=== PATIENT | female | born 1990 | race Two or more races ===

== ENCOUNTER → 2019-01-29 | Outpatient (CLI) | payer OTHER ==
--- NOTE | 2019-01-29 14:09 | REP ---
OBSTETRIC SONOGRAPHY: HISTORY: Supervision of . Lower pelvic pain. SONOGRAPHIC FINDINGS: Scanning demonstrates a viable single intrauterine gestation in variable lie. motion is observed, and heart rate is recorded at 153 beats per minute. A posterior grade 0 placenta is seen without evidence of previa. There is a hypoechoic area within the placenta measuring 3.3 x 4.1 x 2.8 cm most likely a placental altman. A smaller anechoic area is also seen adjacent to this measuring 1.7 cm in greatest diameter. Placental cord insertion is somewhat eccentric inferiorly. Transvaginal scanning is performed and the inferior placental tip is 1.6 cm from the internal cervical os consistent with a low-lying placenta. Amniotic fluid is subjectively normal. Closed cervical length is 4.4 cm measured transvaginally. No anomaly is seen. Facial profile is seen, but nose and lips are less than optimally seen. Similarly, left and right ventricular cardiac outflow tract views, kidneys, and spine are less than optimally seen due to early gestational age. The following additional anatomic structures are identified and felt to be unremarkable: cranium, choroid plexus, cavum, cerebellum and posterior fossa, lungs, four-chamber heart, diaphragm, left-sided stomach, abdominal wall cord insertion, three-vessel umbilical cord, urinary bladder, upper and lower extremities. BIOMETRY CHART: BPD 3.1 cm = 15 weeks 6 days Head circumference 11.5 cm = 15 weeks 4 days Abdominal circumference 9.7 cm = 15 weeks 6 days Femur length 1.8 cm = 15 weeks 3 days Humeral length 1.9 cm = 15 weeks 4 days HC/AC ratio normal 1.18 Cephalic index normal 0.76 Estimated weight 129 grams, 0 pounds 4 ounces, 41st percentile for 15 weeks 4 days. IMPRESSION: Viable single intrauterine gestation at 15 weeks 4 days by today's composite criteria. NATALY by today's sonography July 19, 2019. anatomic survey is incomplete due to early gestational age as above. The umbilical cord insertion on the placenta is eccentric inferiorly. There is a low-lying placenta. There are hypoechoic areas in the placenta consistent with placental lakes. Followup scan is suggested. Electronically Signed by Abdias Mariee MD 01/29/2019 03:20 P
== END ==
LOC: M RAD 11:18
PROVIDERS: ATTEND Physician Assistant
DX: Z34.80 Encounter for supervision of other normal pregnancy, unspecified trimester (principal); Z3A.15 15 weeks gestation of pregnancy

== ENCOUNTER → 2019-02-11 | Outpatient (CLI) | payer OTHER ==
[2019-02-11 10:41] LABS: BASO % 0.3 % (0.0-1.0); EOS % 0.3 % (0.0-3.0); HEMOGLOBIN 11.7 g/dl (12.0-15.5); LYMPH # 1.6 10^3/uL (1.5-6.5); MEAN CORPUSCULAR HEMOGLOBIN 32.5 pg (27.0-33.0); MEAN CORPUSCULAR HGB CONC 34.4 g/dl (32.0-36.5); MEAN CORPUSCULAR VOLUME 94.4 fl (80.0-96.0); MONO # 0.4 10^3/uL (0.0-0.8); MONO % 4.2 % (0.0-5.0); NEUTROPHILS # 7.1 10^3/uL (1.8-7.7); NEUTROPHILS % 77.5 % (36.0-66.0); PLATELET COUNT, AUTOMATED 171 10^3/uL (150-450); WHITE BLOOD COUNT 9.1 10^3/uL (4.0-10.0)
[2019-02-11 13:19] LABS: CHLAMYDIA DNA AMPLIFICATION NEGATIVE (NEGATIVE); GC DNA AMPLIFICATION NEGATIVE (NEGATIVE)
[2019-02-12 10:51] LABS: HIV 1&2 SCREEN CENTAUR NEGATIVE (NEGATIVE); RUBELLA IgG QUALITATIVE IMMUNE (IMMUNE)
== END ==
LOC: M LAB 09:55
PROVIDERS: ATTEND Advanced Practice Midwife
DX: O09.622 Supervision of young multigravida, second trimester (principal); Z3A.00 Weeks of gestation of pregnancy not specified

== ENCOUNTER → 2019-02-15 | Outpatient (CLI) | payer OTHER ==
--- NOTE | 2019-03-10 10:10 | REP ---
OBSTETRIC SONOGRAPHY: REPEAT DICTATION. HISTORY: Supervision of for anatomy. Follow up anatomy. Comparison study, January 29, 2019. This study is acquired on February 15, 2019 and is presented to me for interpretation on March 10, 2019. SONOGRAPHIC FINDINGS: Scanning through the gravid uterus demonstrates a viable single intrauterine gestation in variable lie. motion was identified, and heart rate is recorded at 147 beats per minute. A posterior grade 1 placenta is seen without evidence of previa. Amniotic fluid is subjectively normal. Closed cervical length is measured transabdominally at 3.1 cm. No extrauterine abnormalities observed. There has been appropriate interval growth. Exam quality is inhibited some degree by position and early gestational age. A placental venous altman is observed. No abnormality is observed. The following anatomic structures are identified and felt to be sonographically unremarkable: cranium, choroid plexus, cavum, cerebellum and posterior fossa, facial profile, lungs, four-chamber heart with left ventricular outflow tract view, diaphragm, left-sided stomach, abdominal wall cord insertion, three-vessel cord, kidneys and bladder, spine, upper and lower extremities. Right ventricular cardiac outflow tract and nose and lip views are still less than optimally seen. BIOMETRY CHART: BPD 4.0 cm = 18 weeks 1 day Head circumference 14.9 cm = 18 weeks 0 days Abdominal circumference 12.4 cm = 18 weeks 0 days Femur length 2.7 cm = 18 weeks 2 days Humeral length 2.6 cm = 18 weeks 0 days HC/AC ratio normal 1.21 Cephalic index normal 0.74 Estimated weight 224 grams, 0 pounds 7 ounces, 48 percentile for 18 weeks 1 day. IMPRESSION: Viable single intrauterine gestation at 18 weeks 1 day by today's composite sonographic criteria. Expected gestational age estimate based on prior sonography is 18 weeks 0 days. NATALY by prior sonography, July 19, 2019. nose and lips and right ventricular cardiac outflow tract views less than optimally seen. Otherwise, anatomic survey is felt to be complete. Electronically Signed by Abdias Mariee MD 03/10/2019 12:31 P
== END ==
LOC: M RAD 16:47
PROVIDERS: ATTEND Advanced Practice Midwife
DX: O09.622 Supervision of young multigravida, second trimester (principal); Z3A.18 18 weeks gestation of pregnancy

== ENCOUNTER → 2019-03-11 | Outpatient (CLI) | payer OTHER ==
--- NOTE | 2019-03-11 16:42 | REP ---
OB ULTRASOUND: Real-time sonographic evaluation of the gravid uterus performed. There is a single living intrauterine gestation, estimated gestational age 21 weeks 3 days, based on the first ultrasound, EDC 07/19/2019. Today's measurements indicate appropriate growth. BPD 49 mm = 20 weeks 6 days, 31st percentile HC 183 mm = 20 weeks 5 days, 26th percentile AC 157 mm = 20 weeks 6 days, 36th percentile FL 35 mm = 20 weeks 6 days, 34th percentile HC/AC ratio 1.17, within normal range. Estimated weight 380 grams, 25th percentile. Cervix is closed and measures 4.4 cm in length. heart rate 144 beats per minute. SEEN/GROSSLY UNREMARKABLE Lateral ventricles yes Posterior fossa yes Upper lip yes Four-chamber heart yes LVOT no RVOT yes Stomach yes Cord insertion yes Three vessel cord yes Kidneys yes Bladder yes Spine yes position: Vertex. Placenta: Posterior and grade 1 with no previa or abruption. Venous lakes are seen in the placenta. Amniotic fluid: Within normal limits. Electronically Signed by Rupert Glover MD 03/11/2019 04:47 P
== END ==
LOC: M RAD 15:36
PROVIDERS: ATTEND Advanced Practice Midwife
DX: Z36.9 Encounter for antenatal screening, unspecified (principal); Z3A.21 21 weeks gestation of pregnancy

== ENCOUNTER 2019-04-06 12:03 | Outpatient (CLI) | payer OTHER ==
[~2019-04-06] VITALS: Ht 157.5 cm; Wt 67.6 kg
[2019-04-06] MEDS ORDERED: PRENTAB9 PO (12:20)
[2019-04-06 12:40] VITALS: BP 112/55
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
[2019-04-06 13:55] LABS: APPEARANCE, URINE HAZY (CLEAR); BACTERIA, URINE AUTO NEGATIVE (NEGATIVE); BILIRUBIN, URINE AUTO NEGATIVE (NEGATIVE); BLOOD, URINE BLOOD NEGATIVE (NEGATIVE); COLOR, URINE YELLOW (YELLOW); GLUCOSE, URINE (UA) AUTO NEGATIVE (NEGATIVE); KETONE, URINE AUTO NEGATIVE (NEGATIVE); LEUKOCYTE ESTERASE, URINE AUTO NEGATIVE (NEGATIVE); MUCUS, URINE SMALL (NEGATIVE); NITRITE, URINE AUTO NEGATIVE (NEGATIVE); PROTEIN, URINE AUTO NEGATIVE (NEGATIVE); RBC, URINE AUTO 0 /HPF (0-3); SPECIFIC GRAVITY URINE AUTO 1.023 (1.002-1.035); SQUAMOUS EPITHELIAL CELL UR AU 3 /HPF (0-6); UROBILINOGEN, URINE AUTO 0.2 mg/dL (0.0-2.0); WBC, URINE AUTO 2 /HPF (0-3)
[2019-04-06 14:18] VITALS: BP 112/63
[2019-04-06 15:18] LABS: CHLAMYDIA DNA AMPLIFICATION NEGATIVE (NEGATIVE); GC DNA AMPLIFICATION NEGATIVE (NEGATIVE)
== END 2019-04-06 14:40 | disposition home or self-care (01) ==
LOC: M LDO 12:03
PROVIDERS: ATTEND Specialist
DX: O26.892 Other specified pregnancy related conditions, second trimester (principal); N89.8 Other specified noninflammatory disorders of vagina; R10.30 Lower abdominal pain, unspecified; O99.282 Endocrine, nutritional and metabolic diseases complicating pregnancy, second trimester; E86.0 Dehydration; Z3A.25 25 weeks gestation of pregnancy
CPT/HCPCS: 59025; 76815; 81001; 87081; 87086; 87186; 87661; G0378; G0463

== ENCOUNTER 2019-04-16 15:36 | Outpatient (CLI) | payer OTHER ==
[~2019-04-16] VITALS: Ht 157.5 cm; Wt 69.4 kg
[~2019-04-16 15:36] MED LIST: PRENTAB9 PO
[2019-04-16 15:54] VITALS: BP 99/57
[2019-04-16] MEDS ORDERED: BENA25CA4 PO (17:00)
[2019-04-16] MEDS ORDERED: MAPA500T2 PO (17:00)
[2019-04-16 17:08] LABS: HEMATOCRIT 32.6 % (36.0-47.0); MEAN CORPUSCULAR HEMOGLOBIN 32.4 pg (27.0-33.0); MEAN CORPUSCULAR HGB CONC 33.7 g/dl (32.0-36.5); MEAN CORPUSCULAR VOLUME 95.9 fl (80.0-96.0); PLATELET COUNT, AUTOMATED 156 10^3/uL (150-450); WHITE BLOOD COUNT 7.9 10^3/uL (4.0-10.0)
[2019-04-16 17:09] VITALS: BP 109/56
[2019-04-16 17:54] LABS: ALBUMIN 2.8 GM/DL (3.2-5.2); ALT/SGPT 17 U/L (12-78); BILIRUBIN,DIRECT < 0.1 MG/DL (0.0-0.2); BILIRUBIN,TOTAL 0.2 MG/DL (0.2-1.0); TOTAL PROTEIN 6.5 GM/DL (6.4-8.2)
--- NOTE | 2019-04-16 18:22 | IPNPDOC ---
Text Note Date of Service The patient was seen on 04/16/19. NOTE Outpatient 28yo G [id number] NATALY 07/19/19. Presents to L&D with complaints of rash and decreased FM. States sporadic BHC. Denies bleeding or LOF Mild papular rash across abdomen and chest Cat I tracing LFT, CBC WNL. Bile acids pending VSS Discharged home. Enc to avoid changes to personal care products, benadryl cream, increased hydration Keep next appt VS,Angie, I+O VS, Angie, I+O Laboratory Tests 04/16/19 17:02 Red Blood Count 3.40 L, Mean Corpuscular Volume 95.9, Mean Corpuscular Hemoglobin 32.4, Mean Corpuscular Hemoglobin Concent 33.7, Red Cell Distribution Width 12.9 Vital Signs Date Time Temp Pulse Resp B/P (MAP) Pulse Ox O2 Delivery O2 Flow Rate FiO2 04/16/19 17:09 90 16 109/56 (73) 04/16/19 15:54 98.4 Chiara Cui CNM Apr 16, 2019 18:22
== END 2019-04-16 18:23 | disposition home or self-care (01) ==
LOC: M LDO 15:36
PROVIDERS: ATTEND Advanced Practice Midwife
DX: O36.8190 Decreased fetal movements, unspecified trimester, not applicable or unspecified (principal); O99.89 Other specified diseases and conditions complicating pregnancy, childbirth and the puerperium; R21 Rash and other nonspecific skin eruption; Z3A.00 Weeks of gestation of pregnancy not specified
CPT/HCPCS: 36415; 59025; 80076; 82239; 85027; G0378; G0463

== ENCOUNTER → 2019-06-18 | Outpatient (REF) | payer OTHER ==
[~2019-06-18] MED LIST changes: +BENA25CA4 PO; +MAPA500T2 PO
== END ==
LOC: M LAB REF 13:03
PROVIDERS: ATTEND Advanced Practice Midwife
DX: O09.213 Supervision of pregnancy with history of pre-term labor, third trimester (principal)

== ENCOUNTER 2019-07-05 11:27 | Outpatient (CLI) | payer OTHER ==
[~2019-07-05] VITALS: Ht 157.5 cm; Wt 70.2 kg
[2019-07-05 11:43] VITALS: BP 117/69
--- NOTE | 2019-07-05 12:27 | IPNPDOC ---
Text Note Date of Service The patient was seen on 07/05/19. NOTE Subjective: Patient is a 28-year-old female who is a at 38 weeks gestation who presents to L&D with complaints of decreased movement and increased mucous discharge. Reports back pain and lower pelvic cramping. States that since she has been in L&D she has felt her baby move twice. Her has been complicated by a history of 2 deliveries followed by 2 full t erm deliveries. She reports cramping not contractions. She denies vaginal bleeding. Objective: VS: see below. FHR 135, moderate variability, positive accelerations, no decelerations. Contractions: none. SSE: cervix is multiparous with thin, stringy, white discharge noted. No pooling of fluid noted. Nitrazine essentially negative. Fern negative. SVE: 2/75/-2 with bag of fluid felt with examination. No cervical change noted after 2 hours. Reports feeling multiple movements since being here. Alert and oriented x2. Respiratory rate is regular without use of accessory muscles. Abdomen: gravid and non-tender to touch. Soft with pa lpation. Lower extremities: no edema and no clonus. Assessment: IUP at 38 weeks gestation, decreased movement, Category I FHR tracing. Plan: Patient discharged to home. She is to follow-up with her routine care. She has an appointment this week. Reviewed access to care, kick count, labor signs, and danger signs to report. VS,Fishbone, I+O VS, Fishbone, I+O Vital Signs Date Time Temp Pulse Resp B/P (MAP) Pulse Ox O2 Delivery O2 Flow Rate FiO2 07/05/19 11:43 97.2 101 18 117/69 (85) KRISTIAN LINK CNM Jul 05, 2019 12:27
[2019-07-05 13:06] VITALS: BP 95/51
== END 2019-07-05 14:28 | disposition home or self-care (01) ==
LOC: M LDO 11:27
PROVIDERS: ATTEND Advanced Practice Midwife
DX: O36.8130 Decreased fetal movements, third trimester, not applicable or unspecified (principal); O26.893 Other specified pregnancy related conditions, third trimester; R10.9 Unspecified abdominal pain; Z3A.38 38 weeks gestation of pregnancy
CPT/HCPCS: 59025; G0378; G0463

== ENCOUNTER 2019-07-08 09:45 | Outpatient (CLI) | payer OTHER ==
[~2019-07-08] VITALS: Ht 157.5 cm; Wt 69.9 kg
[2019-07-08 10:00] VITALS: BP 110/65
[2019-07-08] MEDS ORDERED: ACETAMINOPHEN 500 MG TAB PO ONE (11:30)
[2019-07-08] MEDS ORDERED: CYCLOBENZAPRINE 10 MG TAB PO ONE (12:00)
== END 2019-07-08 12:25 | disposition home or self-care (01) ==
LOC: M LDO 09:45
PROVIDERS: ATTEND Specialist
DX: O36.8130 Decreased fetal movements, third trimester, not applicable or unspecified (principal); O26.893 Other specified pregnancy related conditions, third trimester; R10.30 Lower abdominal pain, unspecified; M54.5 Low back pain; Z3A.38 38 weeks gestation of pregnancy
CPT/HCPCS: 59025; G0378; G0463

== ENCOUNTER 2019-07-14 06:28 | Inpatient (IN) | payer OTHER ==
[2019-07-14] VITALS (41 sets, daily range): BP systolic 106–150; BP diastolic 48–94
[~2019-07-14] VITALS: Ht 157.5 cm; Wt 72.3 kg
[2019-07-14 08:27] LABS: HEMOGLOBIN 10.2 g/dl (12.0-15.5); MEAN CORPUSCULAR HEMOGLOBIN 30.8 pg (27.0-33.0); MEAN CORPUSCULAR VOLUME 90.6 fl (80.0-96.0); PLATELET COUNT, AUTOMATED 139 10^3/uL (150-450); RED BLOOD COUNT 3.31 10^6/uL (4.00-5.40); WHITE BLOOD COUNT 5.8 10^3/uL (4.0-10.0)
[2019-07-14] MEDS ORDERED: miSOPROStol 50 MCG 1/2 TAB (S0191) PO ONE (09:00)
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
[2019-07-14] MEDS ORDERED: LACTATED RINGER'S 1000 ML IV ONE (11:30)
[2019-07-14] MEDS ORDERED: OXYTOCIN DRIP 30 UNITS in IV 1 EA IV SCH ×2 (11:30→21:53)
[2019-07-14] MEDS: LR 1,000 ML IV SCH ×2 (11:32→20:01)
[2019-07-14] MEDS ORDERED: ePHEDrine SULFATE 25 MG/5 ML(5MG/ML) SYRINGE IV PRN (14:00)
[2019-07-14] MEDS ORDERED: EPIDURAL COMMENT XX SCH (14:00)
[2019-07-14] MEDS ORDERED: REFRIGERATOR IV KEYS XX PRN (14:00)
[2019-07-14] MEDS ORDERED: EPIDURAL/PCA KEYS XX PRN (14:00)
[2019-07-14] MEDS ORDERED: diphenhydrAMINE INJ 50MG/ML VIAL (J1200) IV PRN (14:00)
[2019-07-14] MEDS ORDERED: ONDANSETRON 4MG/2ML VIAL (J2405) IV PRN (14:00)
[2019-07-14] MEDS ORDERED: FENTANYL/ROPIVACAINE/NACL BAG 100 ML EPIDURAL SCH (14:00)
[2019-07-14] MEDS ORDERED: NALOXONE INJ 0.4 MG/1 ML VIAL (J2310) IV PRN (14:00)
[2019-07-14] MEDS ORDERED: LACTATED RINGER'S 1000 ML IV PRN (14:00)
[2019-07-14] MEDS ORDERED: MEASLES,MUMPS,RUBELLA VACCINE INJ (MMR-II) (90707) SC SCH (22:00)
[2019-07-14] MEDS ORDERED: ACETAMINOPHEN 500 MG TAB PO PRN (22:00)
[2019-07-14] MEDS ORDERED: DIBUCAINE 1% OINTMENT 30GM TOP PRN (22:00)
[2019-07-14] MEDS ORDERED: METHYLERGONOVINE MALEATE 0.2 MG/ML VIAL (J2210) IM ONE (22:00)
[2019-07-14] MEDS ORDERED: METHYLERGONOVINE MALEATE 0.2 MG TAB PO PRN (22:00)
[2019-07-14] MEDS ORDERED: ACETAMINOPHEN TAB 650MG DOSE (2X325MG) PO PRN (22:00)
[2019-07-14] MEDS ORDERED: DOCUSATE SODIUM 100 MG CAP PO PRN (22:00)
[2019-07-14] MEDS ORDERED: RHOGAM 300 MCG (1500 IU) INJ (J2790) IM SCH (22:00)
[2019-07-14] MEDS ORDERED: SLF 3 ML SYR IV PRN (22:45)
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
[2019-07-15 06:06] VITALS: BP 108/62
[2019-07-15] MEDS: SLF 3 ML SYR IV SCH ×2 (06:20→14:00)
[2019-07-15] MEDS: PERCOCET 5MG/325MG TAB PO PRN ×4 (06:27→23:58)
[2019-07-15] MEDS: PRENATAL VITAMINS CHEWABLE TABLET PO SCH (08:43)
[2019-07-15 18:11] VITALS: BP 105/59
[2019-07-16 05:49] VITALS: BP 102/52
[2019-07-16] MEDS: PERCOCET 5MG/325MG TAB PO PRN (06:02)
[2019-07-16] MEDS ORDERED: ACET1TAB55 PO (07:28)
[2019-07-16] MEDS: PRENATAL VITAMINS CHEWABLE TABLET PO SCH (09:00)
[2019-07-16] MEDS ORDERED: OXYC1TAB23 PO (09:22)
== END 2019-07-16 11:08 | disposition home or self-care (01) | DRG 807 ==
LOC: M LDI 06:28 → M OBS 23:31
PROVIDERS: ADMIT Obstetrics & Gynecology; ATTEND Advanced Practice Midwife
PROC: 10E0XZZ Delivery of Products of Conception, External Approach (ICD-10-PCS; principal; 2019-07-14)
PROC: 10907ZC Drainage of Amniotic Fluid, Therapeutic from Products of Conception, Via Natural or Artificial Opening (ICD-10-PCS; 2019-07-14)
PROC: 3E0P7GC Introduction of Other Therapeutic Substance into Female Reproductive, Via Natural or Artificial Opening (ICD-10-PCS; 2019-07-14)
DX: O99.334 Smoking (tobacco) complicating childbirth (principal); Z37.0 Single live birth; Z3A.39 39 weeks gestation of pregnancy; O69.1XX0 Labor and delivery complicated by cord around neck, with compression, not applicable or unspecified

== ENCOUNTER 2019-09-01 12:47 | Outpatient (RCR) | payer OTHER ==
[~2019-09-01 12:47] MED LIST changes: +ACET1TAB55 PO; +OXYC1TAB23 PO
== END 2019-09-11 ==
LOC: M PT 12:47
PROVIDERS: ATTEND Advanced Practice Midwife
DX: Z51.89 Encounter for other specified aftercare (principal); M54.5 Low back pain

== ENCOUNTER 2020-02-07 18:19 | Emergency (ER) | payer OTHER ==
[~2020-02-07] VITALS: Ht 157.5 cm; Wt 65.2 kg
[2020-02-07 18:20] VITALS: BP 109/71
[2020-02-07] MEDS ORDERED: CYCL-707 (18:37)
[2020-02-07] MEDS ORDERED: LIDO1PAD (18:37)
[2020-02-07] MEDS ORDERED: ONDANSETRON 4MG/2ML VIAL IV ONE (19:15)
[2020-02-07] MEDS ORDERED: METHOCARBAMOL 1,000 MG/10 ML VIAL (J2800) IV ONE (19:15)
[2020-02-07] MEDS ORDERED: NS 1,000 ML IV ONE (19:15)
[2020-02-07 20:03] LABS: BASO % 0.3 % (0.0-1.0); EOS # 0.1 10^3/uL (0.0-0.5); EOS % 1.6 % (0.0-3.0); HEMATOCRIT 41.7 % (36.0-47.0); LYMPH # 2.4 10^3/uL (1.5-5.0); LYMPH % 34.7 % (24.0-44.0); MEAN CORPUSCULAR HEMOGLOBIN 30.4 pg (27.0-33.0); MEAN CORPUSCULAR HGB CONC 33.6 g/dl (32.0-36.5); MEAN CORPUSCULAR VOLUME 90.7 fl (80.0-96.0); MONO # 0.3 10^3/uL (0.0-0.8); MONO % 4.6 % (0.0-5.0); NEUTROPHILS % 58.7 % (36.0-66.0); PLATELET COUNT, AUTOMATED 244 10^3/uL (150-450); WHITE BLOOD COUNT 6.8 10^3/uL (4.0-10.0)
--- NOTE | 2020-02-07 20:28 | REPVR ---
PROCEDURE INFORMATION: Exam: CT Head Without Contrast Exam date and time: 02/07/2020 8:12 PM Age: 29 years old Clinical indication: Injury or trauma; Fall; Initial encounter; Blunt trauma (contusions or hematomas); Additional info: Fall, PT tender, blurry vision TECHNIQUE: Imaging protocol: Computed tomography of the head without contrast. Radiation optimization: All CT scans at this facility use at least one of these dose optimization techniques: automated exposure control; mA and/or kV adjustment per patient size (includes targeted exams where dose is matched to clinical indication); or iterative reconstruction. COMPARISON: No relevant prior studies available. FINDINGS: Brain: Normal. No hemorrhage. Unremarkable white matter. No mass effect. Ventricles: Normal. No ventriculomegaly. Bones/joints: Unremarkable. No acute fracture. Sinuses: 2 cm retention cyst right maxillary sinus. Mastoid air cells: Visualized mastoid air cells are well aerated. Soft tissues: Unremarkable. IMPRESSION: No acute intracranial findings. Electronically signed by: Gerald Qureshi On 02/07/2020 20:28:12 PM
--- NOTE | 2020-02-07 20:31 | REPVR ---
PROCEDURE INFORMATION: Exam: CT Cervical Spine Without Contrast Exam date and time: 02/07/2020 8:12 PM Age: 29 years old Clinical indication: Injury or trauma; Fall; Initial encounter; Blunt trauma; Additional info: Fall, PT tender, blurry vision, L arm numbness TECHNIQUE: Imaging protocol: Computed tomography images of the cervical spine without contrast. Radiation optimization: All CT scans at this facility use at least one of these dose optimization techniques: automated exposure control; mA and/or kV adjustment per patient size (includes targeted exams where dose is matched to clinical indication); or iterative reconstruction. COMPARISON: No relevant prior studies available. FINDINGS: Vertebrae: Straightened lordotic curvature of the cervical spine may be positional or posttraumatic. C2-C3: No disc herniation. No spinal canal stenosis. No neural foraminal narrowing. C3-C4: No disc herniation. No spinal canal stenosis. No neural foraminal narrowing. C4-C5: No disc herniation. No spinal canal stenosis. No neural foraminal narrowing. C5-C6: No disc herniation. No spinal canal stenosis. No neural foraminal narrowing. C6-C7: No disc herniation. No spinal canal stenosis. No neural foraminal narrowing. C7-T1: No disc herniation. No spinal canal stenosis. No neural foraminal narrowing. Soft tissues: Unremarkable. Lungs: Lung apices are normal. IMPRESSION: Straightened lordotic curvature as described above. Finding likely positional. Clinical correlation to exclude muscular spasm as etiologic suggested. Electronically signed by: Gerald Qureshi On 02/07/2020 20:30:37 PM
--- NOTE | 2020-02-07 20:36 | REPVR ---
PROCEDURE INFORMATION: Exam: CT Chest Without Contrast Exam date and time: 02/07/2020 8:12 PM Age: 29 years old Clinical indication: Injury or trauma; Fall; Initial encounter; Blunt trauma (contusions or hematomas); Additional info: Fall, dyspnea, posterior rib tenderness TECHNIQUE: Imaging protocol: Computed tomography of the chest without contrast. 3D rendering: MIP and/or 3D reconstructed images were created by the technologist. Radiation optimization: All CT scans at this facility use at least one of these dose optimization techniques: automated exposure control; mA and/or kV adjustment per patient size (includes targeted exams where dose is matched to clinical indication); or iterative reconstruction. COMPARISON: No relevant prior studies available. FINDINGS: Lungs: Unremarkable. No consolidation. No masses. Pleural space: Unremarkable. No pneumothorax. No pleural effusion. Heart: Unremarkable. No cardiomegaly. No pericardial effusion. Aorta: Unremarkable. No aortic aneurysm. Lymph nodes: Unremarkable. No enlarged lymph nodes. Bones/joints: Unremarkable. No acute fracture. Soft tissues: Unremarkable. IMPRESSION: No acute findings. Electronically signed by: Gerald Qureshi On 02/07/2020 20:36:14 PM
--- NOTE | 2020-02-07 20:39 | REPVR ---
PROCEDURE INFORMATION: Exam: CT Lumbar Spine Without Contrast Exam date and time: 02/07/2020 8:12 PM Age: 29 years old Clinical indication: Injury or trauma; Fall; Initial encounter; Blunt trauma (contusions or hematomas); Additional info: Fall, PT tender, blurry vision, R leg numbness TECHNIQUE: Imaging protocol: Computed tomography images of the lumbar spine without contrast. Radiation optimization: All CT scans at this facility use at least one of these dose optimization techniques: automated exposure control; mA and/or kV adjustment per patient size (includes targeted exams where dose is matched to clinical indication); or iterative reconstruction. COMPARISON: No relevant prior studies available. FINDINGS: Vertebrae: No acute fracture. Normal alignment. L1-L2: No disc herniation. No spinal canal stenosis. No neural foraminal narrowing. L2-L3: No disc herniation. No spinal canal stenosis. No neural foraminal narrowing. L3-L4: No disc herniation. No spinal canal stenosis. No neural foraminal narrowing. L4-L5: There is a mild central spinal stenosis at L4-L5 secondary to diffuse annular bulging, thickened ligamentum flavum without facet joint arthropathy. L5-S1: No disc herniation. No spinal canal stenosis. No neural foraminal narrowing. Sacrum/coccyx: Lumbarized 1st sacral segment. Soft tissues: There is a mild central spinal stenosis at L4-L5 secondary to diffuse annular bulging, thickened ligamentum flavum without facet joint arthropathy. IMPRESSION: 1. Mild central spinal stenosis L4-L5. 2. No acute findings. Electronically signed by: Gerald Qureshi On 02/07/2020 20:39:04 PM
[2020-02-07] MEDS ORDERED: ROBA750T4 PO (20:53)
== END 2020-02-07 21:06 | disposition home or self-care (01) ==
LOC: M ED 18:19
DX: S06.0X0A Concussion without loss of consciousness, initial encounter (principal); M54.5 Low back pain; G89.29 Other chronic pain; M51.26 Other intervertebral disc displacement, lumbar region; W10.8XXA Fall (on) (from) other stairs and steps, initial encounter; Y92.89 Other specified places as the place of occurrence of the external cause; G43.909 Migraine, unspecified, not intractable, without status migrainosus; F17.200 Nicotine dependence, unspecified, uncomplicated; Z88.8 Allergy status to other drugs, medicaments and biological substances; Z91.018 Allergy to other foods; Z79.899 Other long term (current) drug therapy
CPT/HCPCS: 70450; 71250; 72125; 72131; 80047; 84702; 85025; 96374; 99283; J2800

== ENCOUNTER 2020-04-13 12:16 | Emergency (ER) | payer OTHER ==
[~2020-04-13] VITALS: Ht 157.5 cm; Wt 61.6 kg
[~2020-04-13 12:16] MED LIST changes: +CYCL-707; +LIDO1PAD; +ROBA750T4 PO
[2020-04-13] MEDS ORDERED: CLON0.5T2 (12:24)
[2020-04-13] MEDS ORDERED: TUMS500C PO (12:24)
[2020-04-13] MEDS ORDERED: ZOLP5TAB (12:24)
[2020-04-13] MEDS ORDERED: ONDANSETRON 4 MG ORAL DISINTEGRATING TAB PO ONE (13:15)
[2020-04-13 13:27] LABS: BASO % 0.3 % (0.0-1.0); EOS % 0.3 % (0.0-3.0); HEMATOCRIT 36.2 % (36.0-47.0); HEMOGLOBIN 12.5 g/dl (12.0-15.5); LYMPH # 1.9 10^3/uL (1.5-5.0); LYMPH % 27.5 % (24.0-44.0); MEAN CORPUSCULAR HEMOGLOBIN 30.9 pg (27.0-33.0); MEAN CORPUSCULAR HGB CONC 34.5 g/dl (32.0-36.5); MEAN CORPUSCULAR VOLUME 89.4 fl (80.0-96.0); MONO # 0.3 10^3/uL (0.0-0.8); MONO % 4.9 % (0.0-5.0); NEUTROPHILS # 4.5 10^3/uL (1.5-8.5); NEUTROPHILS % 66.9 % (36.0-66.0); PLATELET COUNT, AUTOMATED 237 10^3/uL (150-450); RED BLOOD COUNT 4.05 10^6/uL (4.00-5.40); WHITE BLOOD COUNT 6.8 10^3/uL (4.0-10.0)
--- NOTE | 2020-04-13 13:56 | REP ---
Clinical: Chest and lower extremity pain . Technique: Glover scale and color Doppler evaluation of the bilateral lower extremities using linear high frequency transducer. Findings: Ultrasound examination of the right and left lower extremity deep venous structures from the common femoral vein to the popliteal vein demonstrates normal compressibility flow and wave patterns in response to respiration and augmentation. There is no evidence for deep venous thrombosis. Impression: No evidence for deep venous thrombosis of the bilateral lower extremities . Electronically Signed by Vipul Singh MD 04/13/2020 01:48 P
[2020-04-13 14:14] LABS: CK-MB VALUE MASS < 1.0 NG/ML (<3.6); CPK CREATINE PHOSPHOKINASE 65 U/L (26-192); HCG, SERUM QUANTITATIVE 106138 MIU/ML; MB/CK RELATIVE INDEX 1.54 (< OR =4); TROPONIN I 0.02 NG/ML (< 0.10)
--- NOTE | 2020-04-13 14:46 | REP ---
Clinical: Acute chest pain . Comparison: None . Findings: The mediastinum and cardiac silhouette are stable and within normal limits for portable technique. The lung rowan are clear without acute consolidation, effusion, or pneumothorax. Skeletal structures are intact. Impression: No acute cardiopulmonary process appreciated. Electronically Signed by Vipul Singh MD 04/13/2020 02:38 P
[2020-04-13] MEDS ORDERED: ONDA4TAB6 PO (15:29)
[2020-04-13 15:33] VITALS: BP 112/67
--- NOTE | 2020-04-14 00:40 | ECGEPIP ---
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
== END 2020-04-13 15:40 | disposition home or self-care (01) ==
LOC: M ED 12:16
DX: O21.0 Mild hyperemesis gravidarum (principal); O99.341 Other mental disorders complicating pregnancy, first trimester; F41.9 Anxiety disorder, unspecified; O26.891 Other specified pregnancy related conditions, first trimester; M94.0 Chondrocostal junction syndrome [Tietze]; Z88.8 Allergy status to other drugs, medicaments and biological substances; Z91.018 Allergy to other foods; Z3A.00 Weeks of gestation of pregnancy not specified
CPT/HCPCS: 36415; 71045; 80047; 81001; 82550; 82553; 84484; 84702; 85025; 93005; 93970; 99284; Q0162

== ENCOUNTER 2020-06-09 17:17 | Emergency (ER) | payer OTHER ==
[~2020-06-09] VITALS: Ht 157.5 cm; Wt 64.4 kg
[2020-06-09 17:17] VITALS: BP 120/70
[~2020-06-09 17:17] MED LIST changes: +CLON0.5T2; +ONDA4TAB6 PO; +TUMS500C PO; +ZOLP5TAB
--- NOTE | 2020-06-09 19:59 | REPVR ---
PROCEDURE INFORMATION: Exam: US , Limited Exam date and time: 06/09/2020 7:20 PM Age: 29 years old Clinical indication: Lmp or gestational age (in weeks): 16w 2d; ; Patient HX: Patient fell down stairs yesterday and vaginal spotting happened two times today; Additional info: Trauma TECHNIQUE: Imaging protocol: Real-time ultrasound of the maternal uterus with image documentation. Exam focused on the clinical indication. COMPARISON: US OBS FOLL UP OR REPEAT EACH GES 03/11/2019 3:47 PM FINDINGS: Last menstrual period: 02/16/2020 Gestation: There is a single live intrauterine gestation. heart rate: 142 bpm Presentation: Vertex Placenta: Grade 0. The location of the placenta is posterior. The inferior edge of the placenta is located 3 cm away from the cervix. No placental abruption is noted. A placental synechiae is noted. Amniotic fluid: Subjectively, the amniotic fluid volume is within normal limits. MATERNAL: Cervix: The cervix measures 3.6 cm in length. Right adnexa: The right ovary was not visualized due to obscuration by intestinal gas. Left adnexa: The left ovary was not visualized due to obscuration by intestinal gas. IMPRESSION: 1. Single live intrauterine . 2. No evidence for placenta previa or placental abruption. Placental synechiae. Electronically signed by: Oswaldo Kramer On 06/09/2020 19:58:36 PM
== END 2020-06-09 20:31 | disposition home or self-care (01) ==
LOC: M ED 17:17
DX: O20.0 Threatened abortion (principal); O99.89 Other specified diseases and conditions complicating pregnancy, childbirth and the puerperium; M54.5 Low back pain; G89.29 Other chronic pain; Z3A.16 16 weeks gestation of pregnancy; Z88.8 Allergy status to other drugs, medicaments and biological substances; Z91.018 Allergy to other foods

== ENCOUNTER → 2020-06-22 | Outpatient (CLI) | payer OTHER ==
--- NOTE | 2020-07-14 09:12 | REP ---
COMPLETE OBSTETRICAL ULTRASOUND: CLINICAL: Anatomical evaluation. TECHNIQUE: Transabdominal obstetrical ultrasound with color Doppler evaluation. FINDINGS: Ultrasound examination demonstrates a single live intrauterine in breech presentation. motion was identified by technologist. Placenta is noted posteriorly and grade 1 without evidence for placenta previa or abruption. Amniotic fluid volume is normal. Cervix measures 3.1 cm in length and appears closed. Gestational age by LMP is 19 weeks 0 days with estimated date of delivery of 11/16/20. Gestational age by current measurements is 18 weeks 4 days with estimated date of delivery of 11/19/20. heart rate is 149 beats per minute. Estimated weight by current measurements is 254 grams (50th percentile). Anatomical assessment demonstrate normal cranium, ventricles, posterior fossa, orbits, lungs, stomach/diaphragm, kidneys, bladder, spine, extremities and three vessel cord/cord insertion. Limited evaluation of the heart and cardiac ventricular outflow tracts as well as facial features noted. IMPRESSION: Single live intrauterine in breech presentation demonstrating appropriate estimated weight and growth. Anatomical limitations as noted above may warrant re-evaluation and follow up. The remainder of the anatomical assessment is complete and normal. MTDD
== END ==
LOC: M RAD 16:28
PROVIDERS: ATTEND Physician Assistant
DX: Z36.87 Encounter for antenatal screening for uncertain dates (principal); Z3A.18 18 weeks gestation of pregnancy; O32.1XX0 Maternal care for breech presentation, not applicable or unspecified

== ENCOUNTER → 2020-07-25 | Outpatient (REF) | payer OTHER ==
[2020-07-25 15:17] LABS: HEMATOCRIT 34.9 % (36.0-47.0); HEMOGLOBIN 11.4 g/dl (12.0-15.5); MEAN CORPUSCULAR HEMOGLOBIN 30.8 pg (27.0-33.0); MEAN CORPUSCULAR HGB CONC 32.7 g/dl (32.0-36.5); MEAN CORPUSCULAR VOLUME 94.3 fl (80.0-96.0); PLATELET COUNT, AUTOMATED 178 10^3/uL (150-450); WHITE BLOOD COUNT 8.9 10^3/uL (4.0-10.0)
[2020-07-25 16:31] LABS: HEPATITIS C VIRUS ABY INDEX 0.2 INDEX (<0.8); HIV 1&2 SCREEN CENTAUR NEGATIVE (NEGATIVE)
== END ==
LOC: M PLALAB 11:12
PROVIDERS: ATTEND Specialist
DX: Z34.81 Encounter for supervision of other normal pregnancy, first trimester (principal); Z3A.00 Weeks of gestation of pregnancy not specified

== ENCOUNTER → 2020-07-27 | Outpatient (CLI) | payer OTHER ==
--- NOTE | 2020-07-27 11:28 | REP ---
INDICATION: F/U ANATOMY heart and facial features. COMPARISON: June 22, 2020.. TECHNIQUE: Transabdominal scanning. FINDINGS: Scanning through the gravid uterus demonstrates a viable single intrauterine gestation in breech lie. motion is observed and heart rate is recorded at 143 beats per minute. A posterior placenta is seen, grade 1, without evidence of placenta previa. Amniotic fluid is subjectively normal. Closed cervical length is measured at 3.2 cm transabdominally. No extrauterine abnormality is observed. No anomaly is seen. The following anatomic structures are identified and felt to be sonographically unremarkable: cranium, facial profile, nose and lips, four-chamber heart with left and right ventricular outflow tract views, left-sided stomach, kidneys and urinary bladder, spine, three-vessel cord. In conjunction with the prior study, anatomic survey is felt to be complete. Biometry chart: BPD 5.5 cm, 22 weeks 6 days Head circumference 20.9 cm 23 weeks 0 days Abdominal circumference 19.5 cm 24 weeks 1 day Femur length 4.0 cm 23 weeks 0 days humeral length 3.9 cm 24 weeks 0 days HC AC ratio normal 1.07 Cephalic index normal 0.73 Estimated weight 603 g, 1 lb 5 oz, 22nd percentile for 24 weeks 0 days IMPRESSION: Viable single intrauterine gestation at 23 weeks 3 days by today's composite sonographic criteria. NATALY by today's sonography November 20, 2020. No complication identified. Expected gestational age estimate based on prior sonography 24 weeks 0 days, NATALY by prior sonography November 16, 2020. <Electronically signed by Lui Mariee > 07/27/20 [id number]
== END ==
LOC: M WHC 09:56
PROVIDERS: ATTEND Specialist
DX: Z34.82 Encounter for supervision of other normal pregnancy, second trimester (principal)

== ENCOUNTER 2020-09-18 22:26 | Outpatient (CLI) | payer OTHER ==
[~2020-09-18] VITALS: Ht 157.5 cm; Wt 71.8 kg
[2020-09-18 22:53] VITALS: BP 109/53
[2020-09-18 23:24] LABS: APPEARANCE, URINE CLEAR (CLEAR); BACTERIA, URINE AUTO NEGATIVE (NEGATIVE); BILIRUBIN, URINE AUTO NEGATIVE (NEGATIVE); BLOOD, URINE BLOOD NEGATIVE (NEGATIVE); COLOR, URINE YELLOW (YELLOW); GLUCOSE, URINE (UA) AUTO NEGATIVE (NEGATIVE); KETONE, URINE AUTO NEGATIVE (NEGATIVE); LEUKOCYTE ESTERASE, URINE AUTO TRACE (NEGATIVE); NITRITE, URINE AUTO NEGATIVE (NEGATIVE); PROTEIN, URINE AUTO NEGATIVE (NEGATIVE); RBC, URINE AUTO 0 /HPF (0-3); SQUAMOUS EPITHELIAL CELL UR AU 2 /HPF (0-6); UROBILINOGEN, URINE AUTO 0.2 mg/dL (0.0-2.0); WBC, URINE AUTO 1 /HPF (0-3)
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
--- NOTE | 2020-09-19 02:44 | REPVR ---
PROCEDURE INFORMATION: Exam: US ; Follow up Exam date and time: 09/19/2020 1:18 AM Age: 29 years old Clinical indication: Lmp or gestational age (in weeks): 31w5d; Labor and delivery abnormalities; Other: Pressure in cervix/back pain; ; Patient HX: Patient has history of 2 prior babies and 2 full term babies TECHNIQUE: Imaging protocol: Transabdominal ultrasound of the uterus, real time with image documentation. Follow-up (eg, re-evaluation of size by measuring standard growth parameters and amniotic fluid volume, re-evaluation of organ system(s) suspected or confirmed to be abnormal on a previous scan). COMPARISON: US OBS FOLLOW UP OR REPEAT 07/27/2020 10:27 AM FINDINGS: Gestation: Single intrauterine fetus. heart rate: heartbeat of 133 bpm. Presentation: Cephalic presentation. Placenta: Posterior placenta. Amniotic fluid index: Normal C[place] of 13.1 cm. ANATOMICAL SURVEY: anatomy: The stomach, four-chamber heart, cord insertion, bladder, cord, kidneys, nose/lips and spine appear normal. BIOMETRY: Gestational age (AUA): The composite gestational age by ultrasound is 31 weeks 4 days. Estimated due date (AUA): The EDC is 11/17/2020 with adequate interval growth since the prior study. Estimated weight: The estimated weight is 1774 grams and is 51st percentile. Biparietal diameter: The BPD measures 7.7 cm suggesting an age of 31 weeks 0 days. Head circumference: The head circumference measures 28.4 cm suggesting an age of 31 weeks 2 days. Abdominal circumference: The abdominal circumference measures 27.4 cm suggesting an age of 31 weeks 3 days. Femur length: The femur length measures 6.1 cm suggesting an age of 31 weeks 5 days. MATERNAL: Cervix: The cervix measures 2.0 cm transvaginal with funneling of the internal os measuring 4.1 cm in length with diameter minimum of 1.6 cm. IMPRESSION: 1. Single live intrauterine fetus in cephalic presentation with a composite age of 31 weeks 4 days. The EDC is 11/17/2020. 2. Short cervix measuring 2.0 cm with funneling of the internal os measuring 4.1 cm in length with a minimum diameter of 1.6 cm. Electronically signed by: Elio Vásquez On 09/19/2020 02:44:53 AM
== END 2020-09-19 03:08 | disposition home or self-care (01) ==
LOC: M LDO 22:26
PROVIDERS: ATTEND Advanced Practice Midwife
DX: O47.03 False labor before 37 completed weeks of gestation, third trimester (principal); O09.33 Supervision of pregnancy with insufficient antenatal care, third trimester; O99.343 Other mental disorders complicating pregnancy, third trimester; F41.9 Anxiety disorder, unspecified; Z87.891 Personal history of nicotine dependence; Z3A.31 31 weeks gestation of pregnancy
CPT/HCPCS: 59025; 76816; 76817; 76820; 81001; 87252; G0378; G0463

== ENCOUNTER 2020-09-26 12:42 | Outpatient (CLI) | payer OTHER ==
[~2020-09-26] VITALS: Ht 157.5 cm; Wt 69.9 kg
[2020-09-26 13:00] VITALS: BP 97/60
[2020-09-26 14:34] VITALS: BP 101/59
--- NOTE | 2020-09-26 15:34 | IPNPDOC ---
Obstetrical Progress Note Date of Service Sep 26, 2020 Subjective 30yo at 32+5 weeks EGA. Dated by second TM US c/w LMP. Limited care. History of two prior spontaneous PTL / PTB (32 weeks and 34 weeks). She presents complaining of increased vaginal discharge and intermittent pelvic pressure. She denies any large gush of fluid or continuous flow of vaginal fluid. Denies any bright red vaginal bleeding. +FM. No OLIVEIRA, visual changes, RUQ pain, sob, cp. PMH: anxiety, migraines SH: oral surgery Meds: PNV All: Reglan, Latex OB: Term x 3, x 2 (spontaneous PTL/PTB), SAB x 1. 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 Sochx: +smoker, denies illicit drug use/etoh PN course: limited care/late entry Objective Vital Signs Date Time Temp Pulse Resp B/P (MAP) Pulse Ox O2 Delivery O2 Flow Rate FiO2 09/26/20 14:34 89 101/59 (73) 09/26/20 13:00 97.2 18 Assessment Heart Rate Tracing: Category I (Reactive) Tocometer Frequency: irregular (and rare) Sterile Vaginal Examination Dilation: 1cm Effacement (%): 30% Station: -3 Cervical Consistency: Firm Cervical Position: Posterior Postion/Presentation: Cephalic presentation Assessment and Plan Age: 30 : 7 Term: 3 Pre-term: 2 Abortions: 1 Livin Status: Reassuring Additional Comments SSE: cervix visually closed, no pooling, negative ferning/nitrazine SVE: 11/06/-3, no bloody show TVUS,claudio: cephalic presentation. MVP 5-6cm. and Cervical Length is 3.4cm without funneling or dynamic changes. A/P: 30yo at 32+5 weeks EGA. No current evidence of PTL, advanced cervical dilation, cervical shortening, PPROM, IAI/infection. Reassuring maternal and status. Routine third TM precautions reviewed. DO CARINE Smyth JONATHAN R. DO Sep 26, 2020 15:34
== END 2020-09-26 15:30 | disposition home or self-care (01) ==
LOC: M LDO 12:42
PROVIDERS: ATTEND Obstetrics & Gynecology
DX: O26.893 Other specified pregnancy related conditions, third trimester (principal); R10.2 Pelvic and perineal pain; O09.33 Supervision of pregnancy with insufficient antenatal care, third trimester; O99.333 Smoking (tobacco) complicating pregnancy, third trimester; F17.200 Nicotine dependence, unspecified, uncomplicated; Z3A.32 32 weeks gestation of pregnancy; Z91.040 Latex allergy status; Z88.8 Allergy status to other drugs, medicaments and biological substances
CPT/HCPCS: 59025; G0378; G0463

== ENCOUNTER 2020-10-02 05:06 | Inpatient (IN) | payer OTHER ==
[~2020-10-02] VITALS: Ht 157.5 cm; Wt 70.0 kg
[2020-10-02] VITALS (8 sets, daily range): BP systolic 107–168; BP diastolic 50–99
[2020-10-02] MEDS ORDERED: PENICILLIN G POTASSIUM IV 5 MU in D5W MINI-BAG PLUS 100 ML IV ONE (05:15)
[2020-10-02] MEDS ORDERED: ceFAZolin 2 GM/D5W 50 ML IV BAG (J0690 PER 500MG) As Ordered ONE (05:30)
[2020-10-02] MEDS ORDERED: BICITRA 30ML SOLN UDC As Ordered ONE (05:30)
[2020-10-02] MEDS ORDERED: MORPHINE PRES-FREE INJ 10 MG/10 ML VIAL (J2274) As Ordered ONE (05:41)
[2020-10-02] MEDS ORDERED: PHENYLephrine HCL 500 MCG/5 ML (100MCG/ML) SYRINGE (J2370) As Ordered ONE (05:42)
[2020-10-02] MEDS ORDERED: ePHEDrine SULFATE 25 MG/5 ML(5MG/ML) SYRINGE As Ordered ONE (05:42)
[2020-10-02] MEDS ORDERED: OXYTOCIN 30 UNITS IN 0.9% NaCl 500ML IV BAG (J2590) As Ordered ONE ×2 (05:42→07:18)
[2020-10-02] MEDS ORDERED: LR 1,000 ML IV SCH ×2 (05:46→07:45)
[2020-10-02] MEDS ORDERED: LACTATED RINGER'S 1000 ML IV STA (05:46)
[2020-10-02 05:49] LABS: HEMATOCRIT 33.8 % (36.0-47.0); HEMOGLOBIN 11.3 g/dl (12.0-15.5); MEAN CORPUSCULAR HEMOGLOBIN 30.3 pg (27.0-33.0); MEAN CORPUSCULAR HGB CONC 33.4 g/dl (32.0-36.5); MEAN CORPUSCULAR VOLUME 90.6 fl (80.0-96.0); PLATELET COUNT, AUTOMATED 123 10^3/uL (150-450); RED BLOOD COUNT 3.73 10^6/uL (4.00-5.40); WHITE BLOOD COUNT 11.7 10^3/uL (4.0-10.0)
[2020-10-02] MEDS ORDERED: fentaNYL 100 MCG/2 ML INJECTION (J3010) As Ordered ONE ×2 (05:50→07:48)
[2020-10-02] MEDS ORDERED: MIDAZOLAM INJ 2MG/2ML VIAL (J2250 PER 1MG) As Ordered ONE (05:50)
[2020-10-02] MEDS ORDERED: ceFAZolin SOD 2 GM in IV 1 EA IV ONE (06:00)
[2020-10-02] MEDS ORDERED: NALOXONE INJ 0.4MG/1ML VIAL (J2310 PER 1MG) IV PRN ×2 (06:00)
[2020-10-02] MEDS ORDERED: ONDANSETRON 4MG/2ML VIAL IV PRN ×3 (06:00→07:45)
[2020-10-02] MEDS ORDERED: BICITRA 30ML SOLN UDC PO ONE (06:00)
[2020-10-02] MEDS ORDERED: diphenhydrAMINE 50MG/ML VIAL (J1200) IV PRN (06:00)
[2020-10-02] MEDS ORDERED: NALBUPHINE HCL 10 MG/ML AMP (J2300) IV PRN (06:00)
[2020-10-02] MEDS ORDERED: AZITHROMYCIN INJ 500MG VIAL (J0456 PER 500MG) As Ordered ONE (06:13)
[2020-10-02] MEDS ORDERED: AZITHROMYCIN INJ 500 MG, VIAL MATE ADAPTER 1 EACH in D5W 250 ML IV ONE (06:15)
[2020-10-02] MEDS ORDERED: LIDOCAINE 2% 100MG/5ML SDV (FOR ANES.) As Ordered ONE (06:30)
[2020-10-02] MEDS ORDERED: propofoL 200 MG/20 ML VIAL As Ordered ONE (06:30)
[2020-10-02] MEDS ORDERED: ONDANSETRON 4MG/2ML VIAL As Ordered ONE (06:35)
[2020-10-02] MEDS ORDERED: OXYTOCIN DRIP 30 UNITS in IV 1 EA IV SCH (06:52)
[2020-10-02] MEDS ORDERED: MEASLES,MUMPS,RUBELLA VACCINE INJ (MMR-II) (90707) SC SCH (07:00)
[2020-10-02] MEDS ORDERED: PERCOCET 5MG/325MG TAB PO PRN ×3 (07:00→23:30)
[2020-10-02] MEDS ORDERED: RHOGAM 300 MCG (1500 IU) INJ (J2790) IM SCH (07:00)
[2020-10-02] MEDS ORDERED: MOM 30ML SUSPENSION UDC PO PRN (07:00)
[2020-10-02 07:06] LABS: ALT/SGPT 14 U/L (12-78); BILIRUBIN,TOTAL 0.2 MG/DL (0.2-1.0); CREATININE FOR GFR 0.65 MG/DL (0.55-1.30); GLOMERULAR FILTRATION RATE > 60.0 (>60); LDH LACTATE DEHYDROGENASE 178 U/L (84-246); URIC ACID 3.7 MG/DL (2.6-6.0)
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
[2020-10-02] MEDS: fentaNYL 100 MCG/2 ML INJECTION (J3010) IV PRN ×4 (07:50→08:25)
[2020-10-02] MEDS ORDERED: PERCOCET 5MG/325MG TAB As Ordered ONE (08:30)
[2020-10-02] MEDS: PERCOCET 5MG/325MG TAB PO PRN ×4 (08:32→23:31)
--- NOTE | 2020-10-02 09:38 | RO ---
OPERATIVE NOTE DATE OF OPERATION: 10/02/2020 SURGEON: Rosalina Lauren M.D. 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 PREOPERATIVE DIAGNOSIS: 33 week, 4 days active labor with premature, rupture of membranes in the setting of active HSV lesions on the perineum. POSTOPERATIVE DIAGNOSIS: 33 week, 4 days active labor with premature, rupture of membranes in the setting of active HSV lesions on the perineum. MATERIAL FORWARDED TO THE LAB FOR EXAMINATION: Placenta. DESCRIPTION OF FINDINGS: Male in cephalic presentation, Apgars 8 and 8, weight 1996 gm, 4 lb, 6 oz. Normal appearing uterus, fallopian tubes and ovaries. INFECTION CLASSIFICATION: 2. ESTIMATED BLOOD LOSS: 700 mL IV FLUIDS: 800 mL of lactated Ringer's. URINE OUTPUT: 50 mL of clear yellow urine. OPERATION PERFORMED: Primary low transverse section. DESCRIPTION OF OPERATION: After obtaining informed consent, the patient was taken to the operating room. She had reactive NST prior. Spinal anesthesia was administered and she also had a Chamorro catheter placed and bilateral sequential compression devices. She was prepped and draped in normal sterile fashion in the dorsal supine position in the left lateral tilt. A timeout was performed to confirm patient name, date of , procedure and indication. The team was in agreement. She received two grams IV Ancef prophylactically as well as 500 mg IV azithromycin. Spinal anesthesia was found to be adequate using an Allis clamp. A Pfannenstiel skin incision was made with the scalpel and carried through to the underlying layer of the fascia with the Bovie. The fascia was incised in the midline and the incision was extended laterally with Parekh scissors. The superior and inferior aspects of the fascial incision were grasped with Renzo clamps, elevated and the underlying rectus muscles were dissected off bluntly and sharply. The peritoneum was entered digitally and the rectus muscles were in the midline. The peritoneal incision was extended superiorly and inferiorly with good visualization of the bladder. A Mobius retractor was inserted. The vesicouterine peritoneum was identified, grasped with pickups and entered sharply with Metzenbaum scissors. The incision was extended laterally and I attempted to create the bladder flap digitally but was minimally successful given the lower uterine segment was not as thinned down as it would otherwise be if she had been full term. The lower uterine segment was scored in a transverse fashion with a scalpel. The uterus was entered bluntly with the incision being extended with traction. The 's head was elevated to the level of the incision. Fundal pressure was applied. The head was delivered atraumatically in the OA position. The anterior shoulder, posterior shoulder and corpus were delivered without difficulty. The nose and mouth were suctioned with bulb suction and cord was clamped x2 and cut. was handed off to the awaiting cause analyst. Dr. Crowley was present. The placenta was removed with uterine massage and traction on the cord and the uterus was exteriorized and cleared of all clot and debris. The uterine incision was repaired with 0 Vicryl suture in a running locking fashion. A second layer of 0 Monocryl suture was used to close the hysterotomy incision in an imbricating fashion. The uterine incision was inspected. Hemostasis was noted. The gutters were cleared of clots. The peritoneum was closed using 3-0 Vicryl suture in running fashion. The fascia was reapproximated with 0 Vicryl suture in a running fashion. The subcutaneous tissue was copiously irrigated. Magaly's fascia was reapproximated using 3-0 Vicryl suture in a running fashion. Skin edges were reapproximated using a running subcuticular stitch of 4-0 Monocryl suture. The incision was cleaned with a wet lap, dried with a dry lap. Steri-Strips were applied in the usual fashion perpendicular to the Pfannenstiel incision and an Optifoam dressing was applied. Surgical drapes were removed. The vagina was cleared of all blood clot without active bleeding noted. The fundus was firm at U minus 2 cm. All counts were correct x2. The procedure was without complication. The patient tolerated the procedure well. She was taken to the recovery room on labor and delivery in stable condition.
[2020-10-02] MEDS: LR 1,000 ML IV SCH ×3 (11:24→22:52)
[2020-10-02] MEDS: PRENATAL VITAMINS CHEWABLE TABLET PO SCH (12:24)
[2020-10-02] MEDS: valACYclovir HCL 500 MG TAB PO SCH ×2 (12:24→21:00)
[2020-10-02] MEDS: DOCUSATE SODIUM 100MG CAPSULE PO SCH ×2 (12:24→20:33)
[2020-10-03 02:15] VITALS: BP 101/55
[2020-10-03] MEDS: PERCOCET 5MG/325MG TAB PO PRN ×5 (05:14→21:51)
--- NOTE | 2020-10-03 06:58 | IPNPDOC ---
Progress Note Date of Service: Oct 03, 2020 Day#: 1 Progress Note SUBJECT: Darlene is a 30-year-old 7 now Para 4-3-1-6 status post primary section delivery at 33-4/7 weeks' for a herpes outbreak during active labor, doing well day # 1. She has been ambulating around the room, voiding spontaneously without issue and tolerating regular diet. Reports lochia is like a normal period. Pain well controlled with Percocet PRN at this time. She is not passing flatus. OBJECTIVE: VITAL SIGNS: Within normal limits, afebrile. Alert and oriented times three. Respiration regular, no accessory muscle use. Extremities: no edema, no calf tenderness. Abdomen: Fundus firm at U-2. Soft, NTTP. Mild distention noted. Dressing dry and intact, 2 <1cm spots of bleeding noted on dressing. Minimal lochia. ASSESSMENT: Postoperative Day 1 PLAN: 1. Percocet for pain. 2. Encourage ambulation. 3. May shower today. 4. Routine nursing care VS, I&O, [facility] [place] Vital Signs/I&O Vital Signs Date Time Temp Pulse Resp B/P (MAP) Pulse Ox O2 Delivery O2 Flow Rate FiO2 10/03/20 05:50 16 10/03/20 02:15 97.9 93 101/55 (70) 99 10/02/20 18:00 Room Air I&O- Last 24 Hours up to 6 AM 10/03/20 06:00 Intake Total 620 ml Output Total 1875 ml Balance -1255 ml KRISTIAN LINK CNM Oct 03, 2020 06:56
[2020-10-03 07:07] VITALS: BP 108/65
[2020-10-03 08:02] LABS: HEMATOCRIT 30.8 % (36.0-47.0); HEMOGLOBIN 10.1 g/dl (12.0-15.5); MEAN CORPUSCULAR HEMOGLOBIN 30.2 pg (27.0-33.0); MEAN CORPUSCULAR HGB CONC 32.8 g/dl (32.0-36.5); MEAN CORPUSCULAR VOLUME 92.2 fl (80.0-96.0); PLATELET COUNT, AUTOMATED 143 10^3/uL (150-450); RED BLOOD COUNT 3.34 10^6/uL (4.00-5.40)
[2020-10-03] MEDS ORDERED: PERCOCET PO (08:45)
[2020-10-03] MEDS ORDERED: DOK1CAP7 PO (08:45)
[2020-10-03] MEDS: valACYclovir HCL 500 MG TAB PO SCH ×2 (09:00→20:14)
[2020-10-03] MEDS: PRENATAL VITAMINS CHEWABLE TABLET PO SCH (09:28)
[2020-10-03] MEDS: DOCUSATE SODIUM 100MG CAPSULE PO SCH ×2 (09:28→20:14)
[2020-10-03 10:01] VITALS: BP 126/67
[2020-10-03] MEDS ORDERED: BENZOCAINE 20% HEMORRHOIDAL OINTMENT 28GM TUBE TOP PRN (10:45)
[2020-10-03 14:11] VITALS: BP 126/82
[2020-10-03] MEDS ORDERED: MOM 30ML SUSPENSION UDC PO PRN (14:30)
[2020-10-03] MEDS: SIMETHICONE 80 MG CHEW TAB PO SCH ×2 (14:46→20:14)
[2020-10-03 18:03] VITALS: BP 123/72
[2020-10-03 23:21] VITALS: BP 116/69
[2020-10-04] MEDS: SIMETHICONE 80 MG CHEW TAB PO SCH ×2 (01:08→06:07)
[2020-10-04] MEDS: PERCOCET 5MG/325MG TAB PO PRN ×3 (01:58→10:22)
[2020-10-04 02:23] VITALS: BP 118/69
[2020-10-04 06:25] VITALS: BP 112/66
[2020-10-04] MEDS: PRENATAL VITAMINS CHEWABLE TABLET PO SCH (09:14)
[2020-10-04] MEDS: valACYclovir HCL 500 MG TAB PO SCH (09:14)
[2020-10-04] MEDS: DOCUSATE SODIUM 100MG CAPSULE PO SCH (09:14)
--- NOTE | 2020-10-04 11:59 | DSES ---
DISCHARGE SUMMARY DATE OF ADMISSION: 10/02/2020 DATE OF DISCHARGE: 10/04/2020 HISTORY: Darlene is a 30-year-old 7 now para 2, 3, 2, 5 who presented to labor and delivery on 10/02/2020 spontaneously ruptured at 33 weeks and 4 days in active labor as well as a recently diagnosed active HSV outbreak with lesion present at the time of presentation. The decision was made for a primary low transverse section. She delivered a live male infant weighing 1996 grams (4 pounds 6 ounces), Apgars 8 and 8. Her estimated blood loss was 700 mL. Her post-operative course has been complicated by a complaint of unmanaged pain which has now resolved and is managed with oral pain medications. Her was admitted to the Intensive Care Unit and has since been transferred to [facility] due to HSV exposure. She does request discharge today. OBJECTIVE: Her vital signs are stable; temperature 98.5, pulse 109, respirations 18, blood pressure 112/66. Her breasts are soft and nontender. Her abdomen with fundus firm at 1 fingerbreadth below umbilicus. Her incision with the dressing in place there is no new drainage noted. Perineum is intact with Lochia rubra scant. LABORATORY DATA: Laboratories on 10/02/2020: CBC with hemoglobin 11.3, hematocrit 33.8, platelets 123. Post-operative CBC on 10/03/2020: Hemoglobin of 10.1, hematocrit 30.8 and platelets of 143. PLAN: Discharge the patient to home today so she may be able to visit her at [facility]. Prescription for pain medication has been E-prescribed by Dr. Rosalina Lauren to her pharmacy. She is to be seen at [facility] for a 2 week incision check and an 8 week visit. I reviewed Discharge Instructions for the patient which include breast care, incision care, kenya care, pelvic rest, activity and lifting restrictions, danger signs to report and the ability to access care once she is home. The patient has had all of her questions answered and is requesting discharge home today.
[2020-10-05 14:08] LABS: HSV TYPE I IgM AB <1:10 titer (<1:10); HSV TYPE II IgM ABY <1:10 titer (<1:10)
== END 2020-10-04 11:03 | disposition home or self-care (01) | DRG 772 ==
LOC: M LDO 05:06 → M LDI 05:13 → M OBS 09:00
PROVIDERS: ADMIT Obstetrics & Gynecology; ATTEND Obstetrics & Gynecology
PROC: 10D00Z1 Extraction of Products of Conception, Low, Open Approach (ICD-10-PCS; principal; 2020-10-02 06:20)
DX: O42.013 Preterm premature rupture of membranes, onset of labor within 24 hours of rupture, third trimester (principal); O98.32 Other infections with a predominantly sexual mode of transmission complicating childbirth; Z3A.33 33 weeks gestation of pregnancy; A60.09 Herpesviral infection of other urogenital tract; Z37.0 Single live birth

== ENCOUNTER → 2020-12-26 | Outpatient (CLI) | payer OTHER ==
[~2020-12-26] MED LIST changes: +DOK1CAP7 PO; +PERCOCET PO
--- NOTE | 2020-12-26 13:16 | REP ---
INDICATION: R22.9IL BREAST SELLING,MASS AND LUMP; R22.9 KENNEDY BREAST SWELLING,MASS,LUMP. COMPARISON: Comparison bilateral mammography November 19, 2019. TECHNIQUE: Bilateral CC and MLO) view(s) were taken. Craniocaudal and mediolateral oblique views of each breast were obtained with multiple skin markers each of which is affixed to the skin by the patient at site of the palpable lump. There are 4 on the left and 4 on the right. 3D tomography is carried out and targeted bilateral breast sonography is performed. FINDINGS: Breast parenchyma remains heterogeneously dense in a pattern which may inhibit the sensitivity of mammography. There is a stable normal lymph node in the right axilla. No dominant mass density is seen. No architectural distortion or spiculation is observed. No microcalcification or worrisome skin changes seen mammographically. There is no change in the appearance of mammogram from the November 22, 2019 prior study. The Volpara volumetric breast density pattern is C. Bilateral whole breast sonography: Heterogeneous fibroglandular background echotexture is seen bilaterally. No cyst, mass, acoustic shadowing or architectural distortion is seen sonographically in either breast.. IMPRESSION: BIRADS/ACR category 1 negative mammographic and sonographic findings bilaterally.. This patient's Tyrer-Cuzick lifetime breast cancer risk assessment score is 21.2%. Enhanced screening in the form of annual bilateral breast MRI scanning is warranted. This mammogram was interpreted with the aid of an FDA-approved computer-aided detection system. The patient states she had a clinical breast exam in over a year ago. The patient letter being requested is M2 dense. RECOMMENDATION: Repeat screening mammography recommended 1 year (for women over 40). Bilateral breast MRI scanning is recommended annually, beginning 6 months from now. <Electronically signed by Lui Mariee > 12/26/20 0615
== END ==
LOC: M WHC 09:28
PROVIDERS: ATTEND Physician Assistant
DX: R22.9 Localized swelling, mass and lump, unspecified (principal); Z97.8 Presence of other specified devices
CPT/HCPCS: 76642; 77066; G0279

== ENCOUNTER → 2021-02-08 | Outpatient (CLI) | payer OTHER ==
--- NOTE | 2021-02-09 23:24 | ECWPNPC ---
PATIENT NAME: JENA AQUINO : 1990 GENDER: FEMALE VISIT DATE: 02/08/2021 DISCHARGE DATE: 02/08/21 1113 VISIT LOCKED DATE TIME: PHYSICIAN: BROCK SIGALA RESOURCE: BROCK SIGALA REASON FOR APPOINTMENT 1. CHRONIC BACK PAIN HISTORY OF PRESENT ILLNESS DEPRESSION SCREENING: PHQ-2 (2015 EDITION) LITTLE INTEREST OR PLEASURE IN DOING THINGS?SEVERAL DAYS FEELING DOWN, DEPRESSED, OR HOPELESS?DECLINED TO SPECIFY TOTAL SCORE1 30-YEAR-OLD FEMALE IN FOR INITIAL PAIN CONSULT REGARDING LOW BACK PAIN. PATIENT STATES THE PAIN HAS BEEN PRESENT FOR SEVERAL YEARS STATUS POST A HISTORY OF ABUSE. SHE ADMITS TO BEING ON PERCOCET IN THE PAST WITH GOOD RELIEF OF HER PAIN EVIDENCED BY INCREASED FUNCTIONALITY AND DECREASED PAIN. PAIN CENTER INTAKE QUESTIONS: DO YOU HAVE A HISTORY OF MRSA? :NO DO YOU TAKE A BLOOD THINNERS? :NO DO YOU HAVE ANY BLEEDING DISORDERS? :NO ANY NEW NUMBNESS OR WEAKNESS IN YOUR LEGS OR ARMS? :YES WEAKNESS IN RIGHT ARM AND LEGS ANY PACEMAKER,DEFIBRILLATOR, OR DORSAL COLUMN STIMULATOR? :NO DO YOU HAVE ANY RASHES OR OPEN SORES? :NO ARE YOU ALLERGIC TO IV DYE? :NO ARE YOU DIABETIC? :NO ANY NEW PROBLEMS WITH YOUR MEDICATIONS? :NO HAVE YOU RECEIVED A VACCINE IN THE PAST 30 DAYS? :NO DO YOU PLAN TO RECEIVE A VACCINE IN THE NEXT 21 DAYS? :NO DO YOU NEED ANY PRESCRIPTION? :NO DO YOU TAKE ANY IMMUNOSUPPRESSIVE MEDICATIONS? :NO DO YOU HAVE ANY KIDNEY OR LIVER DISEASE? :NO IS THERE A CHANCE YOU COULD BE ? :NO ARE YOU BREAST FEEDING? :NO GENERAL: -. FALL RISK SCREENING: SCREENING FIVE FALLS REPORTED IN THE LAST YEAR WITH INJURY. PATIENT DID NOT SEEK IMMEDIATE MEDICAL TREATMENT.. PAIN SCREENING: PATIENT HAS A COMPLAINT OF ACUTE OR CHRONIC PAIN :YES LOCATION OF PAIN:LOW BACK INTENSITY OF PAIN (SCALE OF 1 TO 10):10 WHAT DOES YOUR PAIN FEEL LIKE:ACHING, BURNING, CONTINOUS, SHARP, STABBING, TENDER, THROBBING, SORE, SHOOTING DURATION:CONTINOUS, CONSTANT, AWAKENS FROM SLEEP PAIN IS INCREASED BY:ACTIVITIES, PROLONGED STANDING PAIN IS DECREASED BY:USE OF PAIN MEDICATIONS, SITTING NURSING NOTE: -. CURRENT MEDICATIONS TAKING 27-1 MG TABLET 1 TABLET ORALLY ONCE A DAY TAKING LIDOCAINE 5 % PATCH 1 PATCH REMOVE AFTER 12 HOURS EXTERNALLY ONCE A DAY TAKING CYCLOBENZAPRINE HCL 5 MG TABLET 1 TABLET NEEDED ORALLY THREE TIMES A DAY, NOTES: PT IS OUT OF MED TAKING AMBIEN 10 MG TABLET 1 TABLET AT BEDTIME NEEDED ORALLY ONCE A DAY TAKING TOPAMAX 50 MG TABLET 1 TABLET ORALLY TWICE A DAY TAKING VITAMIN D3 ULTRA POTENCY 1.25 MG (34440 UT) TABLET 1 TABLET ORALLY TAKING LO LOESTRIN 1/10 1MG/10MCG NOT-TAKING ERYTHROMYCIN 5 MG/GM OINTMENT 1 APPLICATION INTO THE LOWER EYELID OF AFFECTED EYE OPHTHALMIC FOUR TIMES A DAY NOT-TAKING SULFAMETHOXAZOLE-TRIMETHOPRIM 800-160 MG TABLET 1 TABLET ORALLY TWICE A DAY NOT-TAKING ZANAFLEX 4 MG TABLET 1 TABLET NEEDED ORALLY BID NOT-TAKING TYLENOL WITH CODEINE #3 300-30 MG TABLET 2 TABLET NEEDED EVERY 4 HRS, NOTES: OUT OF MED MEDICATION LIST REVIEWED AND RECONCILED WITH THE PATIENT PAST MEDICAL HISTORY ANXIETY MIGRAINES INSOMNIA LOCALIZED SUPERFICAL SWELLING OF SKIN CONTACT DERMATITIS FIBROMYALGIA RHEUMATOID ARTHRITIS ALLERGIES MOTRIN: HIVES - ALLERGY REGLAN: NAUSEA/VOMITING - ALLERGY RITALIN: HYPERACTIVE - SIDE EFFECTS MUSHROOMS: HIVES - SIDE EFFECTS LIDOCAINE: ANAPHYLAXIS - ALLERGY ANISE PEPPERS: ANAPHYLAXIS - ALLERGY - ONSET DATE 12/10/2020 SURGICAL HISTORY ORAL SURGERY WISDOM TOOTH EXTRACTION 11/26/2017 10/02/2020 FAMILY HISTORY FATHER: , LIVER DISEASE MOTHER: , DUE TO BREAST CANCER SIBLINGS: ALIVE SON(S): ALIVE DAUGHTER(S): ALIVE 1 BROTHER(S) - HEALTHY. 3 SON(S) , 3 DAUGHTER(S) - HEALTHY. LIVER DISEASE, DIABETES, HEPATITIS, THYROID DISEASE, ASTHMA, ANEMIA. SOCIAL HISTORY GENERAL: TOBACCO USE ARE YOU A:CURRENT SMOKER VAPE LATEX QUESTIONNAIRE LATEX ALLERGY : HAVE YOU EVER DEVELOPED ANY TYPE OF REACTION AFTER HANDLING LATEX PRODUCTS SUCH RUBBER GLOVES, CONDOMS, DIAPHRAGMS, BALLOONS, SOCKS, OR UNDERWEAR?NO LATEX ALLERGY : HAVE YOU EVER DEVELOPED ANY TYPE OF REACTION DURING OR AFTER DENTAL APPOINTMENT, VAGINAL/RECTAL EXAMINATION, SURGICAL PROCEDURE, OR ANY OTHER EXPOSURE?NO DATE ASKED : 07/25/2020 LATEX RISK : HAVE YOU EVER HAD ANY DIFFICULTY BREATHING OR HIVES AFTER EATING OR HANDLING ANY FRUITS, OR VEGETABLES; SUCH KIWI, BANANAS, STONE FRUITS, OR CHESTNUTSNO LATEX RISK : DO YOU HAVE A PREVIOUS PERSONAL HISTORY OF MORE THAN NINE SURGERIES, SPINA BIFIDA, OR REPEATED CATHERIZATIONS? NO LATEX RISK : ARE YOU FREQUENTLY EXPOSED TO LATEX PRODUCTS IN YOUR OCCUPATION?NO ALCOHOL USE: NO. ALCOHOL SCREENING DID YOU HAVE A DRINK CONTAINING ALCOHOL IN THE PAST YEAR?NO POINTS0 INTERPRETATIONNEGATIVE RECREATIONAL DRUG USE DRUG USE?NO CAFFEINE CAFFEINE USE?YES LANGUAGE LANGUAGES SPOKEN:BOTH AMHARIC AND KHMER LEARNING BARRIERS / SPECIAL NEEDS CHANGE FROM LAST VISIT?NO 07/25/2020 BARRIERS TO LEARNING?YES MEMORY LOSS AT TIMES COMMENTSDOCUMENTED IN NOTES SECTION> HEARING IMPAIRED?NO VISION IMPAIRED?NO COGNITIVELY IMPAIRED?NO READINESS TO LEARN?YES LEARNING PREFERENCES?NO LEARNING CAPABILITIES PRESENT?YES EMOTIONAL BARRIERS?YES PTSD, ANXIETY, DEPRESSION SPECIAL DEVICES?YES :CANE USE OF CANE WHEN THE PAIN GETS TOO BAD. 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. MARITAL STATUS: . HOSPITALIZATION/MAJOR DIAGNOSTIC PROCEDURE CHILDBIRTH REVIEW OF SYSTEMS CONSTITUTIONAL: ANY RECENT FEVER NO . CHILLS NO . WEIGHT CHANGE OF UNKNOWN REASONS NO . MUSCULOSKELETAL: ANY UNUSUAL JOINT PAIN OR SWELLING NOT MENTIONED NO . SYSTEMIC LUPUS NO . ANY NEUROMUSCULAR DISORDER NOT MENTIONED NO . LYME DISEASE NO . GASTROENTEROLOGY: ANY NEW CHANGE IN BOWEL CONTROL? NO . HISTORY OF LIVER DISORDER NOT MENTIONED NO . HISTORY OF UNUSUAL ABDOMINAL PAIN OR CRAMPING NOT MENTIONED NO . NO CONSTIPATION. GENITOURINARY: ANY NEW CHANGE IN BLADDER CONTROL? NO . ANY RENAL/KIDNEY CONDITON NOT MENTIONED NO . NEUROLOGY: HISTORY OF TBI NOT MENTIONED NO . OTHER NEW NUMBNESS OR PAIN PATTERNS NOT MENTIONED NO . NEW ONSET DIZZINESS OR NEUROLOGICAL CHANGES NOT MENTIONED NO . HISTORY OF SEVERE HEADACHES NOT MENTIONED NO . HISTORY OF STROKE OR NEUROLOGICAL DISORDER NOT MENTIONED NO . CARDIOLOGY: HEART SURGERY NO . CONGESTIVE HEART FAILURE/FLUID OVERLOAD NOT MENTIONED NO . HISTORY OF CHEST PAIN,IRREGULAR HEART BEAT NOT MENTIONED NO . RESPIRATORY: SHORTNESS OF BREATH ON EXERTION, WHEEZES, UNUSUAL COUGH NOT MENTIONED NO . ENDOCRINOLOGY: ADRENAL GLAND OR THYROID DISORDERS NOT MENTIONED NO . UNUSUAL URINATION, DIZZINESS OR LETHARGY NOT MENTIONED NO . VITAL SIGNS WT 147.0 LBS, HT 62 IN, BMI 26.88 INDEX, BP 120/64 MM HG, HR 108 /MIN, RR 18 /MIN, TEMP 98.0 F, OXYGEN SAT % 98%, SAFE IN ENV? (Y/N) YES, NA INITIALS AW [id number] OBANDO MA. EXAMINATION GENERAL EXAMINATION: GENERALNO ACUTE DISTRESS, WELL NOURISHED AND HYDRATED. PSYCHAPPROPRIATE MOOD AND AFFECT . LUNGS:CLEAR TO AUSCULTATION BILATERALLY, NO WHEEZES, RHONCHI, RALES. HEART:NO MURMURS, REGULAR RATE AND RHYTHM. BACK:POINT TENDER ALONG LUMBAR SPINE, STARTING SKIN SHOWS NO ERYTHEMA, ECCHYMOSIS, INCREASED WARMTH, AND/OR SKIN ERUPTIONS NOTED. POSITIVE MODIFIED SLR BILATERALLY . ASSESSMENTS INTERVERTEBRAL DISC DISORDERS WITH RADICULOPATHY, LUMBOSACRAL REGION - M51.17 (PRIMARY) USE OF OPIATES FOR THERAPEUTIC PURPOSES - Z79.891 TREATMENT INTERVERTEBRAL DISC DISORDERS WITH RADICULOPATHY, LUMBOSACRAL REGION START LYRICA CAPSULE, 75 MG, 1 CAPSULE, ORALLY, TWICE DAILY, 30 DAYS, 60 START PERCOCET TABLET, 5-325 MG, 1 TABLET NEEDED, ORALLY, EVERY 12 HRS PRN PAIN MDD 2, 30 DAYS, 60 NOTES: 30-YEAR-OLD FEMALE IN FOR INITIAL PAIN CONSULT GIVEN PRESENTING SYMPTOMS RECOMMEND PERCOCET 5/325 MG 1 TABLET TWICE DAILY NEEDED FOR PAIN AND LYRICA 75 MG TWICE DAILY WITH FOLLOW-UP IN ONE MONTH TO DETERMINE EFFICACY OF TREATMENT. PATIENT HAS EXPRESSED HER STANDING OF AND WAS IN AGREEMENT WITH TREATMENT PLAN. GIVEN TIME TO ASK QUESTIONS AND EXPRESS CONCERNS. , ISTOP REGISTRY REVIEWED AND DEMONSTRATES COMPLLIANCE. (REF # [id number] ). USE OF OPIATES FOR THERAPEUTIC PURPOSES LAB: URINE TEST GROUP CELIO OBANDO 02/08/2021 11:10:49 AM > LAST DOSE: AMBIEN 02/07/2021; GABAPENTIN 02/08/2021 0800 OTHERS NOTES: PREGABALINA MATERIAL WAS PRINTED,OXYCODONE MATERIAL WAS PRINTED. PROCEDURE CODES FA211 ESTABILISHED PATIENT [facility] CHARGE DISPOSITION & COMMUNICATION FOLLOW UP 4 WEEKS (REASON: LOW BACK PAIN NEW MED ) ELECTRONICALLY SIGNED BY ANNA BARRIOS ON 02/09/2021 AT 08:36 AM EDT DISCLAIMER : THIS IS A VISIT SUMMARY EXTRACTED FROM THE [employer] CHART. IT IS NOT A COPY OF THE [employer] PROGRESS NOTE. MTDD
== END ==
LOC: M PAIN 09:30
PROVIDERS: ATTEND Family Medicine
DX: M51.17 Intervertebral disc disorders with radiculopathy, lumbosacral region (principal); F41.9 Anxiety disorder, unspecified; G47.00 Insomnia, unspecified; M79.7 Fibromyalgia; F17.290 Nicotine dependence, other tobacco product, uncomplicated; M06.9 Rheumatoid arthritis, unspecified; Z79.891 Long term (current) use of opiate analgesic; Z79.899 Other long term (current) drug therapy; Z88.6 Allergy status to analgesic agent; Z88.8 Allergy status to other drugs, medicaments and biological substances; Z91.018 Allergy to other foods

== ENCOUNTER → 2021-03-09 | Outpatient (CLI) | payer OTHER ==
--- NOTE | 2021-03-14 02:42 | ECWPNPC ---
PATIENT NAME: JENA AQUINO : 1990 GENDER: FEMALE VISIT DATE: 03/09/2021 DISCHARGE DATE: 03/09/21 1150 VISIT LOCKED DATE TIME: PHYSICIAN: BROCK SIGALA RESOURCE: BROCK SIGALA REASON FOR APPOINTMENT 1. LOW BACK PAIN NEW MED HISTORY OF PRESENT ILLNESS PAIN CENTER INTAKE QUESTIONS: DO YOU HAVE A HISTORY OF MRSA? :NO DO YOU TAKE A BLOOD THINNERS? :NO DO YOU HAVE ANY BLEEDING DISORDERS? :NO ANY NEW NUMBNESS OR WEAKNESS IN YOUR LEGS OR ARMS? :NO ANY PACEMAKER,DEFIBRILLATOR, OR DORSAL COLUMN STIMULATOR? :NO DO YOU HAVE ANY RASHES OR OPEN SORES? :NO ARE YOU ALLERGIC TO IV DYE? :NO ARE YOU DIABETIC? :NO ANY NEW PROBLEMS WITH YOUR MEDICATIONS? :NO HAVE YOU RECEIVED A VACCINE IN THE PAST 30 DAYS? :NO DO YOU PLAN TO RECEIVE A VACCINE IN THE NEXT 21 DAYS? :NO DO YOU NEED ANY PRESCRIPTION? :YES CYCLOBENZAPINE, WILL YOU PRESCRIBE ALSO NEEDS REFILSS ON LYRICA AND PERCOCET DO YOU TAKE ANY IMMUNOSUPPRESSIVE MEDICATIONS? :NO DO YOU HAVE ANY KIDNEY OR LIVER DISEASE? :NO IS THERE A CHANCE YOU COULD BE ? :NO ARE YOU BREAST FEEDING? :NO GENERAL: HPI 30-YEAR-OLD FEMALE IN FOR CHRONIC PAIN FOLLOW-UP. SHE RATES HER PAIN CURRENTLY AT AN 8 OUT OF 10 AND DESCRIBES IT CONTINUOUS, BURNING, SORE, AND SHARP. . -. FALL RISK SCREENING: SCREENING YES SEVERAL DOWN THE STAIRS WITHOUT INJURY. PAIN SCREENING: PATIENT HAS A COMPLAINT OF ACUTE OR CHRONIC PAIN :YES LOCATION OF PAIN:LOW BACK, LEFT HIP, RIGHT HIP, HAND(S) INTENSITY OF PAIN (SCALE OF 1 TO 10):8 WHAT DOES YOUR PAIN FEEL LIKE:CONTINOUS, BURNING, SORE, SHARP NURSING NOTE: -. CURRENT MEDICATIONS TAKING LYRICA 75 MG CAPSULE 1 CAPSULE ORALLY TWICE DAILY TAKING PERCOCET 5-325 MG TABLET 1 TABLET NEEDED ORALLY EVERY 12 HRS PRN PAIN MDD 2 TAKING LIDOCAINE 5 % PATCH 1 PATCH REMOVE AFTER 12 HOURS EXTERNALLY ONCE A DAY TAKING CYCLOBENZAPRINE HCL 5 MG TABLET 1 TABLET NEEDED ORALLY THREE TIMES A DAY TAKING AMBIEN 10 MG TABLET 1 TABLET AT BEDTIME NEEDED ORALLY ONCE A DAY TAKING TOPAMAX 50 MG TABLET 1 TABLET ORALLY TWICE A DAY TAKING VITAMIN D3 ULTRA POTENCY 1.25 MG (80641 UT) TABLET 1 TABLET ORALLY TAKING KLONOPIN 0.5 MG TABLET 1 TABLET AT BEDTIME ORALLY TID NOT-TAKING 27-1 MG TABLET 1 TABLET ORALLY ONCE A DAY NOT-TAKING LO LOESTRIN 1/10 1MG/10MCG NOT-TAKING ERYTHROMYCIN 5 MG/GM OINTMENT 1 APPLICATION INTO THE LOWER EYELID OF AFFECTED EYE OPHTHALMIC FOUR TIMES A DAY NOT-TAKING SULFAMETHOXAZOLE-TRIMETHOPRIM 800-160 MG TABLET 1 TABLET ORALLY TWICE A DAY NOT-TAKING ZANAFLEX 4 MG TABLET 1 TABLET NEEDED ORALLY BID NOT-TAKING TYLENOL WITH CODEINE #3 300-30 MG TABLET 2 TABLET NEEDED EVERY 4 HRS, NOTES: OUT OF MED MEDICATION LIST REVIEWED AND RECONCILED WITH THE PATIENT PAST MEDICAL HISTORY ANXIETY MIGRAINES INSOMNIA LOCALIZED SUPERFICAL SWELLING OF SKIN CONTACT DERMATITIS FIBROMYALGIA RHEUMATOID ARTHRITIS ALLERGIES MOTRIN: HIVES - ALLERGY REGLAN: NAUSEA/VOMITING - ALLERGY RITALIN: HYPERACTIVE - SIDE EFFECTS MUSHROOMS: HIVES - SIDE EFFECTS LIDOCAINE: ANAPHYLAXIS - ALLERGY ANISE PEPPERS: ANAPHYLAXIS - ALLERGY - ONSET DATE 12/10/2020 SURGICAL HISTORY ORAL SURGERY WISDOM TOOTH EXTRACTION 11/26/2017 10/02/2020 FAMILY HISTORY FATHER: , LIVER DISEASE MOTHER: , DUE TO BREAST CANCER SIBLINGS: ALIVE SON(S): ALIVE DAUGHTER(S): ALIVE 1 BROTHER(S) - HEALTHY. 3 SON(S) , 3 DAUGHTER(S) - HEALTHY. LIVER DISEASE, DIABETES, HEPATITIS, THYROID DISEASE, ASTHMA, ANEMIA. HOSPITALIZATION/MAJOR DIAGNOSTIC PROCEDURE CHILDBIRTH REVIEW OF SYSTEMS CONSTITUTIONAL: ANY RECENT FEVER NO . CHILLS NO . WEIGHT CHANGE OF UNKNOWN REASONS NO . GASTROENTEROLOGY: NEW UNEXPLAINABLE CHANGES IN BOWEL CONTROL NO . CONSTIPATION NO . GENITOURINARY: ANY NEW CHANGE IN BLADDER CONTROL? NO . NEUROLOGY: NEW ONSET DIZZINESS OR NEUROLOGICAL CHANGES NOT MENTIONED NO . NEW NUMBNESS OR PAIN PATTERNS NOT MENTIONED AND PERTINENT TO TODAY'S VISIT NO . CARDIOLOGY: NEW CHEST PRESSURE NO . PATIENT DENIES NO . RESPIRATORY: UNEXPLAINABLE COUGH NO . NEW SHORTNESS OF BREATH NO . VITAL SIGNS WT 144 LBS, HT 62 IN, BMI 26.34 INDEX, REPEAT BP 111/54 MM HG, HR 100 /MIN, RR 18 /MIN, TEMP 98 F, OXYGEN SAT % 100, SAFE IN ENV? (Y/N) YES, REVIEWED BY: KG. EXAMINATION GENERAL EXAMINATION: GENERALNO ACUTE DISTRESS, WELL NOURISHED AND HYDRATED. PSYCHAPPROPRIATE MOOD AND AFFECT . LUNGS:CLEAR TO AUSCULTATION BILATERALLY, NO WHEEZES, RHONCHI, RALES. HEART:NO MURMURS, REGULAR RATE AND RHYTHM. ASSESSMENTS INTERVERTEBRAL DISC DISORDERS WITH RADICULOPATHY, LUMBOSACRAL REGION - M51.17 (PRIMARY) TREATMENT INTERVERTEBRAL DISC DISORDERS WITH RADICULOPATHY, LUMBOSACRAL REGION REFILL PERCOCET TABLET, 5-325 MG, 1 TABLET NEEDED, ORALLY, EVERY 12 HRS PRN PAIN MDD 2, 30 DAYS, 60 REFILL CYCLOBENZAPRINE HCL TABLET, 5 MG, 1 TABLET NEEDED, ORALLY, THREE TIMES A DAY, 30 DAY(S), 90 TABLET(S) REFILL LYRICA CAPSULE, 75 MG, 1 CAPSULE, ORALLY, TWICE DAILY, 30 DAYS, 60 NOTES: 30-YEAR-OLD FEMALE IN FOR CHRONIC PAIN FOLLOW-UP. GIVEN PRESENTING SYMPTOMS RECOMMENDED CONTINUATION OF CURRENT MEDICATION REGIMEN WITH FOLLOW-UP IN 2 MONTHS. PATIENT HAS EXPRESSED UNDERSTANDING OF AND WAS IN AGREEMENT WITH TREATMENT PLAN. GIVEN TIME TO ASK QUESTIONS AND EXPRESS CONCERNS. ISTOP REGISTRY REVIEWED AND DEMONSTRATES COMPLLIANCE. (REF #[id number] ) BRINGS IN MEDICATIONS WHICH IS APPROPRIATE FOR WHAT WAS DISPENSED. RECENT URINE TOXICOLOGY REVIEWED. NO UNAUTHORIZED MEDICATIONS. NO ILLICIT SUBSTANCES AND PRESCRIBED MEDICATIONS WERE PRESENT. DISPOSITION & COMMUNICATION FOLLOW UP 2 MONTHS (REASON: LOW BACK PAIN ) ELECTRONICALLY SIGNED BY ANNA BARRIOS ON 03/13/2021 AT 09:25 AM EDT DISCLAIMER : THIS IS A VISIT SUMMARY EXTRACTED FROM THE [employer] CHART. IT IS NOT A COPY OF THE [employer] PROGRESS NOTE. DENNIS
== END ==
LOC: M PAIN 11:15
PROVIDERS: ATTEND Family Medicine
DX: M51.17 Intervertebral disc disorders with radiculopathy, lumbosacral region (principal); F41.9 Anxiety disorder, unspecified; G43.909 Migraine, unspecified, not intractable, without status migrainosus; G47.00 Insomnia, unspecified; M79.7 Fibromyalgia; M06.9 Rheumatoid arthritis, unspecified; Z79.891 Long term (current) use of opiate analgesic; Z79.899 Other long term (current) drug therapy; Z88.6 Allergy status to analgesic agent; Z88.4 Allergy status to anesthetic agent; Z91.018 Allergy to other foods; Z88.8 Allergy status to other drugs, medicaments and biological substances

== ENCOUNTER → 2021-05-09 | Outpatient (CLI) | payer OTHER ==
--- NOTE | 2021-05-11 04:04 | ECWPNPC ---
PATIENT NAME: JENA AQUINO : 1990 GENDER: FEMALE VISIT DATE: 05/09/2021 DISCHARGE DATE: 05/09/21 1131 VISIT LOCKED DATE TIME: PHYSICIAN: BROCK SIGALA RESOURCE: BROCK SIGALA REASON FOR APPOINTMENT 1. LOW BACK PAIN/DISCUSS MEDS HISTORY OF PRESENT ILLNESS GENERAL: HPI 30-YEAR-OLD FEMALE IN FOR CHRONIC PAIN FOLLOW-UP AT LAST CLINIC VISIT PATIENT WAS STARTED ON LYRICA AND SHE ADMITS TODAY THAT THIS HAS BEEN BENEFICIAL. SHE RATES HER PAIN CURRENTLY AT AN 8 OUT OF 10 AND DESCRIBES IT ACHING, CONTINUOUS, AND SHARP.. -. FALL RISK SCREENING: SCREENING ONE FALL REPORTED IN THE LAST YEAR WITHOUT INJURY.. PAIN SCREENING: PATIENT HAS A COMPLAINT OF ACUTE OR CHRONIC PAIN :YES LOCATION OF PAIN:LOW BACK INTENSITY OF PAIN (SCALE OF 1 TO 10):8 WHAT DOES YOUR PAIN FEEL LIKE:ACHING, CONTINOUS, SHARP DURATION:CONSTANT, AWAKENS FROM SLEEP PAIN IS INCREASED BY:ACTIVITIES, PROLONGED STANDING PAIN IS DECREASED BY:USE OF PAIN MEDICATIONS, SITTING HEAT, REPOSITIONING NURSING NOTE: -. PAIN CENTER INTAKE QUESTIONS: DO YOU HAVE A HISTORY OF MRSA? :NO DO YOU TAKE A BLOOD THINNERS? :NO DO YOU HAVE ANY BLEEDING DISORDERS? :NO ANY NEW NUMBNESS OR WEAKNESS IN YOUR LEGS OR ARMS? :YES WEAKNESS IN RIGHT ARM AND LEGS ANY PACEMAKER,DEFIBRILLATOR, OR DORSAL COLUMN STIMULATOR? :NO DO YOU HAVE ANY RASHES OR OPEN SORES? :NO ARE YOU ALLERGIC TO IV DYE? :NO ARE YOU DIABETIC? :NO ANY NEW PROBLEMS WITH YOUR MEDICATIONS? :NO HAVE YOU RECEIVED A VACCINE IN THE PAST 30 DAYS? :NO DO YOU PLAN TO RECEIVE A VACCINE IN THE NEXT 21 DAYS? :NO DO YOU NEED ANY PRESCRIPTION? :YES ALL DO YOU TAKE ANY IMMUNOSUPPRESSIVE MEDICATIONS? :NO DO YOU HAVE ANY KIDNEY OR LIVER DISEASE? :NO IS THERE A CHANCE YOU COULD BE ? :NO ARE YOU BREAST FEEDING? :NO CURRENT MEDICATIONS TAKING LIDOCAINE 5 % PATCH 1 PATCH REMOVE AFTER 12 HOURS EXTERNALLY ONCE A DAY TAKING AMBIEN 10 MG TABLET 1 TABLET AT BEDTIME NEEDED ORALLY ONCE A DAY TAKING TOPAMAX 50 MG TABLET 1 TABLET ORALLY TWICE A DAY TAKING VITAMIN D3 ULTRA POTENCY 1.25 MG (43638 UT) TABLET 1 TABLET ORALLY TAKING PERCOCET 5-325 MG TABLET 1 TABLET NEEDED ORALLY EVERY 12 HRS PRN PAIN MDD 2 TAKING CYCLOBENZAPRINE HCL 5 MG TABLET 1 TABLET NEEDED ORALLY THREE TIMES A DAY TAKING LYRICA 75 MG CAPSULE 1 CAPSULE ORALLY TWICE DAILY NOT-TAKING KLONOPIN 0.5 MG TABLET 1 TABLET AT BEDTIME ORALLY TID, NOTES: RAN OUT NOT-TAKING 27-1 MG TABLET 1 TABLET ORALLY ONCE A DAY NOT-TAKING LO LOESTRIN 1/10 1MG/10MCG NOT-TAKING ERYTHROMYCIN 5 MG/GM OINTMENT 1 APPLICATION INTO THE LOWER EYELID OF AFFECTED EYE OPHTHALMIC FOUR TIMES A DAY NOT-TAKING SULFAMETHOXAZOLE-TRIMETHOPRIM 800-160 MG TABLET 1 TABLET ORALLY TWICE A DAY NOT-TAKING ZANAFLEX 4 MG TABLET 1 TABLET NEEDED ORALLY BID NOT-TAKING TYLENOL WITH CODEINE #3 300-30 MG TABLET 2 TABLET NEEDED EVERY 4 HRS, NOTES: OUT OF MED MEDICATION LIST REVIEWED AND RECONCILED WITH THE PATIENT PAST MEDICAL HISTORY ANXIETY MIGRAINES INSOMNIA LOCALIZED SUPERFICAL SWELLING OF SKIN CONTACT DERMATITIS FIBROMYALGIA RHEUMATOID ARTHRITIS ALLERGIES MOTRIN: HIVES - ALLERGY REGLAN: NAUSEA/VOMITING - ALLERGY RITALIN: HYPERACTIVE - SIDE EFFECTS MUSHROOMS: HIVES - SIDE EFFECTS LIDOCAINE: ANAPHYLAXIS - ALLERGY ANISE PEPPERS: ANAPHYLAXIS - ALLERGY - ONSET DATE 12/10/2020 SOCIAL HISTORY GENERAL: TOBACCO USE ARE YOU A:CURRENT SMOKER VAPE LATEX QUESTIONNAIRE LATEX ALLERGY : HAVE YOU EVER DEVELOPED ANY TYPE OF REACTION AFTER HANDLING LATEX PRODUCTS SUCH RUBBER GLOVES, CONDOMS, DIAPHRAGMS, BALLOONS, SOCKS, OR UNDERWEAR?NO LATEX ALLERGY : HAVE YOU EVER DEVELOPED ANY TYPE OF REACTION DURING OR AFTER DENTAL APPOINTMENT, VAGINAL/RECTAL EXAMINATION, SURGICAL PROCEDURE, OR ANY OTHER EXPOSURE?NO LATEX RISK : HAVE YOU EVER HAD ANY DIFFICULTY BREATHING OR HIVES AFTER EATING OR HANDLING ANY FRUITS, OR VEGETABLES; SUCH KIWI, BANANAS, STONE FRUITS, OR CHESTNUTSNO LATEX RISK : DO YOU HAVE A PREVIOUS PERSONAL HISTORY OF MORE THAN NINE SURGERIES, SPINA BIFIDA, OR REPEATED CATHERIZATIONS? NO LATEX RISK : ARE YOU FREQUENTLY EXPOSED TO LATEX PRODUCTS IN YOUR OCCUPATION?NO DATE ASKED : 05/09/2021 ALCOHOL USE: NO. ALCOHOL SCREENING DID YOU HAVE A DRINK CONTAINING ALCOHOL IN THE PAST YEAR?NO POINTS0 INTERPRETATIONNEGATIVE RECREATIONAL DRUG USE DRUG USE?NO CAFFEINE CAFFEINE USE?YES LANGUAGE LANGUAGES SPOKEN:BOTH GRENADIAN AND LATVIAN LEARNING BARRIERS / SPECIAL NEEDS CHANGE FROM LAST VISIT?NO 07/25/2020 BARRIERS TO LEARNING?YES MEMORY LOSS AT TIMES COMMENTSDOCUMENTED IN NOTES SECTION> HEARING IMPAIRED?NO VISION IMPAIRED?NO COGNITIVELY IMPAIRED?NO READINESS TO LEARN?YES LEARNING PREFERENCES?NO LEARNING CAPABILITIES PRESENT?YES EMOTIONAL BARRIERS?YES PTSD, ANXIETY, DEPRESSION SPECIAL DEVICES?YES :CANE USE OF CANE WHEN THE PAIN GETS TOO BAD. 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 [employer]OOK. MARITAL STATUS: . REVIEW OF SYSTEMS CONSTITUTIONAL: ANY RECENT FEVER NO . CHILLS NO . WEIGHT CHANGE OF UNKNOWN REASONS NO . GASTROENTEROLOGY: NEW UNEXPLAINABLE CHANGES IN BOWEL CONTROL NO . CONSTIPATION NO . GENITOURINARY: ANY NEW CHANGE IN BLADDER CONTROL? NO . NEUROLOGY: NEW ONSET DIZZINESS OR NEUROLOGICAL CHANGES NOT MENTIONED NO . NEW NUMBNESS OR PAIN PATTERNS NOT MENTIONED AND PERTINENT TO TODAY'S VISIT NO . CARDIOLOGY: NEW CHEST PRESSURE NO . PATIENT DENIES NO . RESPIRATORY: UNEXPLAINABLE COUGH NO . NEW SHORTNESS OF BREATH NO . VITAL SIGNS WT 144 LBS, HT 62 IN, BMI 26.34 INDEX, BP 151/95 MM HG, HR 101 /MIN, RR 18 /MIN, TEMP 98.6 F, OXYGEN SAT % 98%, SAFE IN ENV? (Y/N) YES, REVIEWED BY: ANTHONY OBANDO MA. EXAMINATION GENERAL EXAMINATION: GENERALNO ACUTE DISTRESS, WELL NOURISHED AND HYDRATED. PSYCHAPPROPRIATE MOOD AND AFFECT . LUNGS:CLEAR TO AUSCULTATION BILATERALLY, NO WHEEZES, RHONCHI, RALES. HEART:NO MURMURS, REGULAR RATE AND RHYTHM. ASSESSMENTS INTERVERTEBRAL DISC DISORDERS WITH RADICULOPATHY, LUMBOSACRAL REGION - M51.17 (PRIMARY) PAIN IN THORACIC SPINE - M54.6 TREATMENT INTERVERTEBRAL DISC DISORDERS WITH RADICULOPATHY, LUMBOSACRAL REGION REFILL PERCOCET TABLET, 5-325 MG, 1 TABLET NEEDED, ORALLY, EVERY 12 HRS PRN PAIN MDD 2, 30 DAYS, 60 REFILL CYCLOBENZAPRINE HCL TABLET, 5 MG, 1 TABLET NEEDED, ORALLY, THREE TIMES A DAY, 30 DAY(S), 90 TABLET(S) INCREASE LYRICA CAPSULE, 100 MG, 1 CAPSULE, ORALLY, TWICE DAILY, 30 DAYS, 60 NOTES: 30-YEAR-OLD FEMALE IN FOR CHRONIC PAIN FOLLOW-UP. GIVEN PRESENTING SYMPTOMS RECOMMEND INCREASING LYRICA TO 100 MG TWICE DAILY WITH FOLLOW-UP IN 2 MONTHS TO DETERMINE EFFICACY OF TREATMENT. PATIENT HAS EXPRESSED UNDERSTANDING OF AND WAS IN AGREEMENT WITH TREATMENT PLAN. GIVEN TIME TO ASK QUESTIONS AND EXPRESS CONCERNS. ISTOP REGISTRY REVIEWED AND DEMONSTRATES COMPLLIANCE. (REF # ) BRINGS IN MEDICATIONS WHICH IS APPROPRIATE FOR WHAT WAS DISPENSED. RECENT URINE TOXICOLOGY REVIEWED. NO UNAUTHORIZED MEDICATIONS. NO ILLICIT SUBSTANCES AND PRESCRIBED MEDICATIONS WERE PRESENT. PAIN IN THORACIC SPINE REFILL LIDOCAINE PATCH, 5 %, 1 PATCH REMOVE AFTER 12 HOURS, EXTERNALLY, ONCE A DAY, 5 DAY(S), 5, REFILLS 0 PROCEDURE CODES [id number] ESTABILISHED PATIENT [facility] CHARGE DISPOSITION & COMMUNICATION FOLLOW UP 2 MONTHS (REASON: MEDICATION INCREASE ) ELECTRONICALLY SIGNED BY ANNA BARRIOS ON 05/10/2021 AT 08:14 AM EDT DISCLAIMER : THIS IS A VISIT SUMMARY EXTRACTED FROM THE [employer] CHART. IT IS NOT A COPY OF THE [employer] PROGRESS NOTE. ELD
== END ==
LOC: M PAIN 11:00
PROVIDERS: ATTEND Family Medicine
DX: M51.17 Intervertebral disc disorders with radiculopathy, lumbosacral region (principal); F41.9 Anxiety disorder, unspecified; G43.909 Migraine, unspecified, not intractable, without status migrainosus; G47.00 Insomnia, unspecified; M79.7 Fibromyalgia; F17.290 Nicotine dependence, other tobacco product, uncomplicated; Z79.891 Long term (current) use of opiate analgesic; Z79.899 Other long term (current) drug therapy; Z88.6 Allergy status to analgesic agent; Z88.4 Allergy status to anesthetic agent; Z88.8 Allergy status to other drugs, medicaments and biological substances; Z91.018 Allergy to other foods

== ENCOUNTER → 2021-07-13 | Outpatient (CLI) | payer OTHER ==
[~2021-07-13] MED LIST changes: +DOK1CAP4 PO; -DOK1CAP7 PO; +PROHANCE 279.3MG/ML 15ML VIAL As Ordered ONE
--- NOTE | 2021-07-13 13:46 | REP ---
INDICATION: FAM HX OF BREAST CA. COMPARISON: Comparison mammography December 26, 2020. TECHNIQUE: Three Elisa MRI imaging was performed with a dedicated breast coil. Axial, coronal, and sagittal T1 and T2 weighted scans were obtained with and without fat saturation in the usual fashion. The study includes dynamically acquired post gadolinium-enhanced imaging with image subtraction. Maximum intensity projection and multi planar reformation imaging is included as well. This study is interpreted with the aid of [employer], an FDA approved computer aided detection (CAD) software program, on a dedicated breast MRI workstation. The gadolinium enhancement dose is 11 mL of intravenous ProHance. FINDINGS: There is a moderate amount of fibroglandular tissue bilaterally corresponding with the mammographic pattern. There is moderate background parenchymal enhancement. There is no evidence of axillary lymphadenopathy or significant breast cystic change. High-resolution pre and post-contrast T1 and T2 weighted scans show no suspicious morphologic abnormality in either breast. Dynamically acquired sequential postcontrast images show no suspicious area of enhancement and washout kinetics in either breast to suggest malignancy. Subtraction images show no additional abnormality. IMPRESSION: BI-RADS category 1 negative bilateral breast MRI findings. <Electronically signed by Lui Mariee > 07/13/21 [id number]
== END ==
LOC: M RAD 11:01
PROVIDERS: ATTEND Family Medicine
DX: R22.9 Localized swelling, mass and lump, unspecified (principal); Z80.3 Family history of malignant neoplasm of breast

== ENCOUNTER → 2021-08-14 | Outpatient (CLI) | payer OTHER ==
[~2021-08-14] MED LIST changes: -PROHANCE 279.3MG/ML 15ML VIAL As Ordered ONE
== END ==
LOC: M PAIN 13:30
PROVIDERS: ATTEND Anesthesiology
DX: M79.18 Myalgia, other site (principal); F41.9 Anxiety disorder, unspecified; G43.909 Migraine, unspecified, not intractable, without status migrainosus; G47.00 Insomnia, unspecified; M79.7 Fibromyalgia; M06.9 Rheumatoid arthritis, unspecified; Z79.891 Long term (current) use of opiate analgesic; Z79.899 Other long term (current) drug therapy; Z88.8 Allergy status to other drugs, medicaments and biological substances; Z88.4 Allergy status to anesthetic agent; Z88.6 Allergy status to analgesic agent; Z91.018 Allergy to other foods

== ENCOUNTER → 2021-11-08 | Outpatient (CLI) | payer OTHER | LOC: M PAIN 11:30 | PROVIDERS: ATTEND Nurse Practitioner Family | DX: M51.17 Intervertebral disc disorders with radiculopathy, lumbosacral region (principal); M79.10 Myalgia, unspecified site; F41.9 Anxiety disorder, unspecified; G43.909 Migraine, unspecified, not intractable, without status migrainosus; G47.00 Insomnia, unspecified; M79.7 Fibromyalgia; M06.9 Rheumatoid arthritis, unspecified; F17.290 Nicotine dependence, other tobacco product, uncomplicated; Z79.891 Long term (current) use of opiate analgesic; Z79.899 Other long term (current) drug therapy ==